=== PATIENT | female | born 1975 | race African-American/Black ===

== ENCOUNTER 2017-04-03 14:50 | Inpatient (IN) | payer OTHER, MEDICARE ==
[~2017-04-03] VITALS: Ht 175.3 cm; Wt 90.0 kg
[~2017-04-03 14:50] MED LIST: BENZ1TAB PO; CLON1TAB PO; DEPA500T3 PO; GABA600T PO; IMIP25TA PO; LEVO100T4 PO; LEVO88TA2 PO; LISI-363 PO; METF500 PO; NIFE30TA2 PO; OMEP20TA39 PO; SERO100T PO; SIMV20 PO; TRAZ100 PO; ZANA4CAP PO; ZOLP10TA3 PO
[2017-04-03 14:58] VITALS: BP 140/93; PULSE 122; RESP 18; TEMP 98.3; O2SAT 99
[2017-04-03 15:28] LABS: AUTOMATED NEUTROPHIL # 9.6 TH/MM3 (1.8-7.7); BASOPHIL # 0.1 TH/MM3 (0-0.2); BASOPHIL % 0.4 % (0.0-2.0); EOSINOPHIL # 0.1 TH/MM3 (0-0.4); EOSINOPHIL % 0.5 % (0.0-4.0); HEMATOCRIT 39.9 % (35.0-46.0); HEMO FLAGS DIFF FINAL; LYMPH % 13.3 % (9.0-44.0); LYMPHOCYTE # 1.6 TH/MM3 (1.0-4.8); MEAN CELL VOLUME 91.3 FL (80.0-100.0); MEAN CORPUSCULAR HEMOGLOBIN 29.5 PG (27.0-34.0); MEAN CORPUSCULAR HGB CONC 32.3 % (32.0-36.0); MONO % 7.3 % (0.0-8.0); NEUT % 78.5 % (16.0-70.0); PLATELET COUNT 189 TH/MM3 (150-450); RED BLOOD COUNT 4.37 MIL/MM3 (4.00-5.30); RED CELL DISTRIBUTION WIDTH 14.8 % (11.6-17.2); WHITE BLOOD COUNT 12.2 TH/MM3 (4.0-11.0)
[2017-04-03 15:39] LABS: POTASSIUM 3.7 MEQ/L (3.5-5.1)
[2017-04-03 15:52] LABS: AMPHETAMINE, URINE NEG (NEG); BARBITURATES, URINE NEG (NEG); COCAINE, URINE NEG (NEG)
--- NOTE | 2017-04-03 16:08 | PD ---
HPI Chief Complaint: Psychiatric Symptoms Time Seen by Provider: 16:05 Travel History International Travel<30 days: No Contact w/Intl Traveler<30days: No Traveled to known affect area: No History of Present Illness HPI 41-year-old female presents to the emergency Department under ex parte order for psychiatric evaluation. According to the court order, the patient's been psychotic refusing her psychiatric medications. The patient is alert and oriented to person, place, time, but then goes off on a tangent talking about taking care of little kids. According to her chart, she has a long history and multiple admissions for schizophrenia and bipolar disorder. However, she denies having these diagnoses. She also denies taking any medications. Patient has no medical complaints at this time. She denies any alcohol, tobacco , illicit drug use. PFSH Past Medical History Blood Disorders: No Bipolar Disorder: Yes Anxiety: Yes Depression: Yes Cancer: No Cardiovascular Problems: No Diabetes: Yes Diminished Hearing: No Endocrine: Yes Gastrointestinal Disorders: No Genitourinary: No Hypertension: Yes Immune Disorder: No Implanted Vascular Access Dvce: No Musculoskeletal: No Neurologic: No Psychiatric: Yes Reproductive: No Respiratory: No PNEUMOCCOCAL Vaccine (Year): 2 ?: Not LMP: DOES NOT GET ANYMORE Menopausal: Yes : 1 Para: 1 Past Surgical History Abdominal Surgery: Yes (CSECTION) AICD: No Arteriovenous Shunt: No Section: Yes (1997) Gynecologic Surgery: Yes Insulin Pump: No Joint Replacement: No Pacemaker: No Other Surgery: Yes (C SECTION ONLY) Social History Alcohol Use: No Tobacco Use: Yes (11/15 PPD) Substance Use: Yes (COCOAINE) Allergies-Medications (Allergen,Severity, Reaction): Coded Allergies: No Known Allergies (Unverified , 01/30/16) PER SARAH AT [facility], PATIENT HAS NKDA PER RECORD. Reported Meds & Prescriptions Reported Meds & Active Scripts Active Reported Levothyroxine 88 mcg (Levothyroxine Sodium) 88 Mcg Tab 88 Mcg PO DAILY Nifedical Xl (Nifedipine) 30 Mg Tab 30 Mg PO DAILY Zanaflex 4 mg capsule (Tizanidine HCl) 4 Mg Cap 1 Cap PO BID Levothyroxine 100 mcg (Levothyroxine Sodium) 100 Mcg Tab 100 Mcg PO DAILY Simvastatin 20 mg (Simvastatin) 20 Mg Tab 1 Tab PO HS Gabapentin 600 Mg Tab 600 Mg PO DAILY Clonazepam 1 Mg Tab 1 Mg PO TID Zolpidem Tartrate 10 Mg Tab 10 Mg PO HS Hm Omeprazole (Omeprazole) 20 Mg Tab 20 Mg PO DAILY Trazodone Hcl (Trazodone HCl) 100 Mg Tab 100 Mg PO HS Cogentin (Benztropine Mesylate) 2 Mg Tab 2 Mg PO HS Depakote ER 500 mg (Divalproex Sodium) 500 Mg Tab 1 Tab PO BID Imipramine HCl 25 Mg Tab 25 Mg PO HS Glucophage 500 mg (Metformin HCl) 500 Mg Tab 500 Mg PO BIDPC Seroquel 100 mg (Quetiapine Fumarate) 100 Mg Tab 100 Mg PO BID Lisinopril 20 mg (Lisinopril) 20 Mg Tab 1 Tab PO DAILY Review of Systems Except as stated in HPI: all other systems reviewed are Neg Physical Exam Narrative GENERAL: Well-nourished, well-developed female patient, ambulatory. Afebrile. Patient is alert and oriented to person, place, time. SKIN: Focused skin assessment warm/dry. HEAD: Normocephalic. EYES: No scleral icterus. No injection or drainage. NECK: Supple, trachea midline. No JVD or lymphadenopathy. CARDIOVASCULAR: Regular rate and rhythm without murmurs, gallops, or rubs. RESPIRATORY: Breath sounds equal bilaterally. No accessory muscle use. Lungs sounds are clear to auscultation. GASTROINTESTINAL: Abdomen soft, non-tender, nondistended. MUSCULOSKELETAL: No cyanosis, or edema. PSYCHIATRIC: No delusional thought processes. No hallucinations. Patient talks about unrelated subjects. Data Data Last Documented VS Vital Signs Date Time Temp Pulse Resp B/P Pulse Ox O2 Delivery O2 Flow Rate FiO2 04/03/17 16:12 105 16 100 Room Air 04/03/17 14:58 98.3 140/93 Orders Complete Blood Count With Diff (04/03/17 15:01) Basic Metabolic Panel (Bmp) (04/03/17 15:01) Drug Screen, Random Urine (04/03/17 15:01) Psych Screen (04/03/17 15:01) Labs Laboratory Tests Test 04/03/17 04/03/17 13:20 15:12 Urine Opiates Screen NEG Urine Barbiturates Screen NEG Urine Amphetamines Screen NEG Urine Benzodiazepines Screen NEG Urine Cocaine Screen NEG Urine Cannabinoids Screen NEG White Blood Count 12.2 TH/MM3 Red Blood Count 4.37 MIL/MM3 Hemoglobin 12.9 GM/DL Hematocrit 39.9 % Mean Corpuscular Volume 91.3 FL Mean Corpuscular Hemoglobin 29.5 PG Mean Corpuscular Hemoglobin 32.3 % Concent Red Cell Distribution Width 14.8 % Platelet Count 189 TH/MM3 Mean Platelet Volume 9.6 FL Neutrophils (%) (Auto) 78.5 % Lymphocytes (%) (Auto) 13.3 % Monocytes (%) (Auto) 7.3 % Eosinophils (%) (Auto) 0.5 % Basophils (%) (Auto) 0.4 % Neutrophils # (Auto) 9.6 TH/MM3 Lymphocytes # (Auto) 1.6 TH/MM3 Monocytes # (Auto) 0.9 TH/MM3 Eosinophils # (Auto) 0.1 TH/MM3 Basophils # (Auto) 0.1 TH/MM3 CBC Comment DIFF FINAL Differential Comment Sodium Level 143 MEQ/L Potassium Level 3.7 MEQ/L Chloride Level 110 MEQ/L Carbon Dioxide Level 24.0 MEQ/L Anion Gap 9 MEQ/L Blood Urea Nitrogen 12 MG/DL Creatinine 0.85 MG/DL Estimat Glomerular Filtration 89 ML/MIN Rate Random Glucose 121 MG/DL Calcium Level 10.1 MG/DL MDM Medical Decision Making Medical Screen Exam Complete: Yes Emergency Medical Condition: Yes Medical Record Reviewed: Yes Differential Diagnosis Schizophrenia versus bipolar disorder versus depression versus anxiety Narrative Course 31-year-old female long history of bipolar disorder and schizophrenia presents to the emergency Department under court order for psychiatric evaluation. The patient denies having these diagnoses. She has no medical complaints at this time. CBC shows slight leukocytosis at 12.2. BMP shows no acute abnormality. Urine drug screen is negative. Patient is medically cleared for psychiatric screening and disposition. Mental health screening discussed with the patient. Psychiatric screen ordered. Diagnosis Primary Impression: Schizophrenia Qualified Code: F20.9 - Schizophrenia, unspecified type Additional Instructions: Patient is medically cleared for psychiatric screening and disposition. Condition: Stable Lynne Alicea BLACK April 03, 2017 16:08
[2017-04-03 16:12] VITALS: PULSE 105; RESP 16; O2SAT 100
[2017-04-03] MEDS ORDERED: LORazepam 2 MG/ML VIAL IM ONE (17:15)
[2017-04-03] MEDS ORDERED: OLANZapine IM 10 MG VIAL IM ONE (17:15)
--- NOTE | 2017-04-03 18:50 | PD ---
History of Present Illness Chief Complaint: Psychiatric Symptoms Time Seen by Provider: 16:45 Travel History International Travel<30 Days: No Contact w/Intl Traveler<30days: No Known affected area: No Legal Status Legal Status: Ex Parte [employer] Act Comment: petitioners Christos Pelaez and Natalie Smith History of Present Illness: History of Present Illness HPI 41-year-old female with history of schizophrenia presents to the emergency Department under ex parte order initiated by her caregiver and a [facility] employee for psychiatric evaluation. The petitioners report that the patient has not been taking her psychiatric medication, has been screaming and yelling, threatening other residents, uncooperative with house rules., did not sleep for the past 24 hours. 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 Her speech is loud, rapid, unable to be interrupted. She is distracted and tangential, religiously preoccupied. She is demanding to leave the hospital and would not move from exits despite multiple verbal attempts to get her to move away from exit door. She did not respond to verbal redirection and required to be escorted back to her room.She began to talk about the devil as well as saying that we are saying she is mentally ill but that she is not so. Required ETO as well as restraints as patient escalated , was threatening to leave the unit and was not responding to staff requests . PFSH Past Medical History Blood Disorders: No Bipolar Disorder: Yes Anxiety: Yes Depression: Yes Cancer: No Cardiovascular Problems: No Diabetes: Yes Diminished Hearing: No Endocrine: Yes Gastrointestinal Disorders: No Genitourinary: No Hypertension: Yes Immune Disorder: No Implanted Vascular Access Dvce: No Musculoskeletal: No Neurologic: No Psychiatric: Yes Reproductive: No Respiratory: No PNEUMOCCOCAL Vaccine (Year): 2 ?: Not LMP: DOES NOT GET ANYMORE Menopausal: Yes : 1 Para: 1 Past Surgical History Abdominal Surgery: Yes (CSECTION) AICD: No Arteriovenous Shunt: No Section: Yes (1997) Gynecologic Surgery: Yes Insulin Pump: No Joint Replacement: No Pacemaker: No Other Surgery: Yes (C SECTION ONLY) Psychiatric History Psychiatric History Hx Psychiatric Treatment: Patient is well known to this facility dating back February 2008, with a diagnosis of Schizoaffective D/O, and medication and treatment noncompliance. History of Inpatient Treatment: Yes (Multiple admissions including 4 past admissions to [facility]) Social History unable to obtain Hx Alcohol Use: No Hx Tobacco Use: Yes (11/15 PPD) Hx Substance Use: Yes (COCOAINE) Substance Use Type: Nicotine/Cigarettes Other Substances Used: DENIES Hx of Substance Use Treatment: No Family Psychiatric History unable to obtain Allergies-Medications (Allergen,Severity, Reaction): Coded Allergies: No Known Allergies (Unverified , 01/30/16) PER SARAH AT [facility], PATIENT HAS NKDA PER RECORD. Reported Meds & Prescriptions Reported Meds & Active Scripts Active Reported Levothyroxine 88 mcg (Levothyroxine Sodium) 88 Mcg Tab 88 Mcg PO DAILY Nifedical Xl (Nifedipine) 30 Mg Tab 30 Mg PO DAILY Zanaflex 4 mg capsule (Tizanidine HCl) 4 Mg Cap 1 Cap PO BID Levothyroxine 100 mcg (Levothyroxine Sodium) 100 Mcg Tab 100 Mcg PO DAILY Simvastatin 20 mg (Simvastatin) 20 Mg Tab 1 Tab PO HS Gabapentin 600 Mg Tab 600 Mg PO DAILY Clonazepam 1 Mg Tab 1 Mg PO TID Zolpidem Tartrate 10 Mg Tab 10 Mg PO HS Hm Omeprazole (Omeprazole) 20 Mg Tab 20 Mg PO DAILY Trazodone Hcl (Trazodone HCl) 100 Mg Tab 100 Mg PO HS Cogentin (Benztropine Mesylate) 2 Mg Tab 2 Mg PO HS Depakote ER 500 mg (Divalproex Sodium) 500 Mg Tab 1 Tab PO BID Imipramine HCl 25 Mg Tab 25 Mg PO HS Glucophage 500 mg (Metformin HCl) 500 Mg Tab 500 Mg PO BIDPC Seroquel 100 mg (Quetiapine Fumarate) 100 Mg Tab 100 Mg PO BID Lisinopril 20 mg (Lisinopril) 20 Mg Tab 1 Tab PO DAILY Review of Systems ROS Limitations: Uncooperative, Psychotic Exam Alert: Yes Hamer: Person, Place Mood: Agitated Affect: Other (angry) Speech: Clear, Fast, Illogical, Tangential Eye Contact: Indirect Memory Intact: Comment (not tested) Delusions: Yes Delusion Type: Paranoid Suicidal: Ideation (neagtive) Homicidal: Ideation (neagtive) Insight/Judgement poor. impaired MDM Medical Decision Making Medical Record Reviewed: Yes Assessment/Plan 41 year old female who is psychotic , loud, threatening to leave the unit, not accepting verbal redirection, screaming loudly. Patient is given ETO . Most likely will require inpatient treatment to stabilize, maintain safety and initiate medication. Orders Complete Blood Count With Diff (04/03/17 15:01) Basic Metabolic Panel (Bmp) (04/03/17 15:01) Drug Screen, Random Urine (04/03/17 15:01) Psych Screen (04/03/17 15:01) Diet 1800 Ada Cons Carb (04/03/17 Dinner) Restraints Violent (04/03/17 17:00) Lorazepam Inj (Ativan Inj) (04/03/17 17:15) Olanzapine Inj (Zyprexa Inj) (04/03/17 17:15) Results Vital Signs Date Time Temp Pulse Resp B/P Pulse Ox O2 Delivery O2 Flow Rate FiO2 04/03/17 16:12 105 16 100 Room Air 04/03/17 14:58 98.3 122 18 140/93 99 Laboratory Tests Test 04/03/17 04/03/17 13:20 15:12 Urine Opiates Screen NEG Urine Barbiturates Screen NEG Urine Amphetamines Screen NEG Urine Benzodiazepines Screen NEG Urine Cocaine Screen NEG Urine Cannabinoids Screen NEG White Blood Count 12.2 Red Blood Count 4.37 Hemoglobin 12.9 Hematocrit 39.9 Mean Corpuscular Volume 91.3 Mean Corpuscular Hemoglobin 29.5 Mean Corpuscular Hemoglobin 32.3 Concent Red Cell Distribution Width 14.8 Platelet Count 189 Mean Platelet Volume 9.6 Neutrophils (%) (Auto) 78.5 Lymphocytes (%) (Auto) 13.3 Monocytes (%) (Auto) 7.3 Eosinophils (%) (Auto) 0.5 Basophils (%) (Auto) 0.4 Neutrophils # (Auto) 9.6 Lymphocytes # (Auto) 1.6 Monocytes # (Auto) 0.9 Eosinophils # (Auto) 0.1 Basophils # (Auto) 0.1 CBC Comment DIFF FINAL Differential Comment Sodium Level 143 Potassium Level 3.7 Chloride Level 110 Carbon Dioxide Level 24.0 Anion Gap 9 Blood Urea Nitrogen 12 Creatinine 0.85 Estimat Glomerular Filtration 89 Rate Random Glucose 121 Calcium Level 10.1 Diagnosis Primary Impression: Schizophrenia Additional Instructions: Patient is medically cleared for psychiatric screening and disposition. Condition: Stable Problem Qualifiers Primary Impression: Schizophrenia Qualified Code: F20.9 - Schizophrenia, unspecified type Erica Cisse [facility] April 03, 2017 18:50
[2017-04-03 22:22] VITALS: BP 186/95; PULSE 84; RESP 18; O2SAT 98
[2017-04-04] MEDS ORDERED: LORazepam 2 MG TAB PO PRN (00:30)
[2017-04-04] MEDS ORDERED: LORazepam 2 MG/ML VIAL IM PRN ×2 (00:30→00:45)
[2017-04-04] MEDS ORDERED: OLANZapine IM 10 MG VIAL IM PRN (00:45)
[2017-04-04] MEDS ORDERED: OLANZapine 10 MG TAB PO PRN ×2 (00:45→07:15)
[2017-04-04 02:11] VITALS: BP 175/96; PULSE 89; RESP 18; O2SAT 97
[2017-04-04 06:28] VITALS: BP 173/99; PULSE 85; RESP 18; O2SAT 97
[2017-04-04] MEDS: LORazepam 2 MG TAB PO PRN (14:23)
[2017-04-04] MEDS ORDERED: LISINOPRIL 10 MG TAB PO ONE (18:00)
[2017-04-04 18:07] VITALS: BP 166/117; PULSE 137
[2017-04-05 02:20] VITALS: BP 170/117; PULSE 111; RESP 18; TEMP 98.4; O2SAT 98
[2017-04-05] MEDS: LORazepam 2 MG TAB PO PRN (02:25)
[2017-04-05] MEDS: cloNIDine HCL 0.1 MG TAB PO PRN (02:25)
[2017-04-05] MEDS ORDERED: OLANZapine 10 MG TAB PO PRN (03:30)
[2017-04-05 06:15] VITALS: BP 148/92; PULSE 98
[2017-04-05 08:10] LABS: ANION GAP 8 MEQ/L (5-15); BLOOD UREA NITROGEN 16 MG/DL (7-18); CHLORIDE 110 MEQ/L (98-107); GLOMERULAR FILTRATION RATE 98 ML/MIN (>89); POTASSIUM 3.9 MEQ/L (3.5-5.1); SODIUM (NA) 144 MEQ/L (136-145)
[2017-04-05 08:12] LABS: HDL CHOLESTEROL 61.1 MG/DL (40.0-60.0); LDL CHOLESTEROL 80 MG/DL (0-99)
[2017-04-05] MEDS ORDERED: LISINOPRIL 10 MG TAB PO SCH (09:00)
[2017-04-05] MEDS ORDERED: BENZTROPINE MESYLATE 2 MG/2 ML VIAL IM PRN (10:45)
[2017-04-05] MEDS ORDERED: GLUCAGON 1 MG/ML VIAL OTHER PRN (10:45)
[2017-04-05] MEDS ORDERED: DEXTROSE 50% IN WATER 50 ML VIAL(D50) IV PRN (10:45)
[2017-04-05] MEDS ORDERED: HALOPERIDOL LACTATE 5 MG/ML AMP IM PRN (10:45)
[2017-04-05] MEDS ORDERED: BENZTROPINE MESYLATE 1 MG TAB PO PRN (10:45)
--- NOTE | 2017-04-05 10:55 | HHI.HP ---
Provisional Diagnosis Admission Date April 04, 2017 at 15:52 [place] I. 1. Schizophrenia, paranoid type, acute exacerbation [place] II. Deferred [place] V. GAF is 30 presently Certification of Person's Competence To Provide Express and Informed Consent I have personally examined Kelli Cuenca , a person being served at [facility] on, April 05, 2017 10:22. Express and informed consent means consent voluntarily given in writing, by a competent person, after sufficient explanation and disclosure of the subject matter involved to enable the person to make a knowing and willful decision without any element of force, fraud, deceit, duress, or other form of constraint or coercion. This person is 18 years of age or older, is not now known to be incompetent to consent to treatment with a guardian advocate, and does not have a health care surrogate or proxy currently making medical treatment decisions. I have found this person to be one of the following: [] Competent to provide express and informed consent, as defined above, for voluntary admission to this facility and is competent to provide express and informed consent for treatment. He/she has the consistent capacity to make well reasoned, willful, and knowing decisions concerning his or her medical or mental health treatment. The person fully and consistently understands the purpose of the admission for examination/placement and is fully capable of personally exercising all rights [place] [x] Incompetent to provide express and informed consent to voluntary admission, and this is incompetent to provide express and informed consent to treatment. The person must be transferred to involuntary status and a petition for a guardian advocate filed with the Circuit Court. [] Refusing to provide express and informed consent to voluntary admission but is competent to provide express and informed consent for treatment. The person must be discharged or transferred to involuntary status. Form shall be completed within 24 hours of a person's arrival at the receiving facility and filed in the clinical record of each person: 1. Admitted on a voluntary basis 2. Permitted to provide express and informed consent to his/her own treatment 3. Allowed to transfer from involuntary to voluntary status 4. Prior to permitting a person to consent to his or her own treatment after having been previously found incompetent to consent to treatment. History of Present Illness Capacity: Lacks Capacity HPI Ms. Cuenca is a 41-year-old female with a history of schizophrenia who presents under an ex parte order initiated by her caregiver, Ms. Pelaez, and a [facility] employee, Ms. Smith. I have reviewed the ex parte order in detail and it alleges that the patient has been refusing medications and threatening other residents at her facility. Efforts were allegedly made to have the patient Koo acted by law enforcement without success. Ex parte order also alleges that the patient was found with a knife in her bedroom dresser drawer on 03/22, and all sharps were subsequently secured. Patient was evaluated by the psychiatric nurse practitioner in the emergency department and was apparently agitated there, requiring ETO medications. Reviewing the electronic medical record, I note the patient was admitted here most recently in February of last year under Dr. Villanueva, and it appears that she was transferred to the [facility] for further stabilization at that time. Patient seen and examined with counselor and nurse. Chart reviewed. Case discussed with nursing staff reports that the patient has been intermittently agitated since arriving to the floor. On my examination today, the patient presents as delusional. She believes that her sister, Niya, is "poisoning me with chemicals and drugs in my system." She says that she knows that this is happening because she has at times felt "fainty and bloated in the head." She denies physical complaints at this time, except that she believes that her blood is "dirty and dark and that's where the pressure is coming from." She wants us to "draw off [her blood] to make me pure again." Sabianist preoccupation is noted. Insight into mental illness is poor, and the patient rejects any mental illness diagnosis. Thought process fairly linear within delusional system. Affect is euthymic if somewhat childlike. No issues with mood noted. She denies any suicidal or homicidal ideation. She denies any audiovisual hallucinations. Remainder of the psychiatric ROS is negative. Past psychiatric history: Patient rejects any psychiatric diagnosis although she does report that she has been diagnosed with schizophrenia and bipolar disorder in the past. She says that she was hospitalized most recently at the [facility] at [place] and was hospitalized there for 9 months. She denies any history of suicide attempts. Reviewing the medication administration record, I note previous trials of Haldol and Haldol Decanoate, Risperdal, Invega Sustenna, Geodon, Zyprexa along with Depakote. A medication list is incorporated into the ex parte order. Presently, the patient is prescribed Seroquel 300 mg twice a day, which she has allegedly been refusing. Other medications include Zocor, Zestril, metformin, Synthroid, Procardia, aspirin and Prilosec as well as Colace. Review of Systems ROS Limitations: Psychotic, Poor Historian Except as stated in HPI: all other systems reviewed are Neg Past Psych History Psychological trauma history No reported trauma history to me Violence risk - others (6 mos) Indeterminate. Patient is psychotic and unpredictable. She was allegedly agitated at her facility and has been agitated at intervals on the inpatient psychiatric unit per nursing staff. Violence risk - self (6 mos) Indeterminate. Patient is psychotic and unpredictable. Substance Abuse History Drugs/Alcohol past 12 months Patient denies any history of abuse of drugs or alcohol but does say that she smokes about 4 cigarettes a day. Past Family Social History Coded Allergies: *MDRO Multi-Drug Resistant Organism (Verified Adverse Reaction, Unknown, MRSA, 04/05/17) MRSA (wounds) - 12/01/07, 02/01/08 Past Medical History Patient denies that she has any medical issues besides believing that her blood is somehow contaminated and that she is being poisoned with chemicals. Discontinued Reported Medications Levothyroxine Sodium (Levothyroxine 88 mcg)88 Mcg Tab88 Mcg PO DAILY 03/07/16 Nifedipine (Nifedical Xl)30 Mg Tab30 Mg PO DAILY 03/07/16 Tizanidine 4 mg capsule (Zanaflex 4 mg capsule)4 Mg Cap1 Cap PO BID 03/07/16 Levothyroxine Sodium (Levothyroxine 100 mcg)100 Mcg [id number] Mcg PO DAILY 03/07/16 Simvastatin 20 mg 20 Mg Tab1 Tab PO HS 03/07/16 Gabapentin 600 Mg [id number] Mg PO DAILY 03/07/16 Clonazepam (Clonazepam)1 Mg Tab1 Mg PO TID 03/07/16 Zolpidem Tartrate 10 Mg Tab10 Mg PO HS 03/07/16 Omeprazole (Hm Omeprazole)20 Mg Tab20 Mg PO DAILY 03/07/16 Trazodone HCl 100 Mg [id number] Mg PO HS 01/29/16 Benztropine Mesylate (Benztropine Mesylate)2 Mg Tab2 Mg PO HS 01/29/16 Divalproex ER 500 mg (Depakote ER 500 mg)500 Mg Tab1 Tab PO BID 01/29/16 Imipramine Hcl (Imipramine HCl)25 Mg Tab25 Mg PO HS 01/29/16 Metformin 500 mg (Glucophage 500 mg)500 Mg Klk190 Mg PO BIDPC 01/29/16 Quetiapine Fumarate 100 mg (Seroquel 100 mg)100 Mg [id number] Mg PO BID 01/29/16 Lisinopril 20 mg 20 Mg Tab1 Tab PO DAILY 01/29/16 Current Medications Medications (Trade) Dose Ordered Sig/Kanwal Route Start Time Stop Time Status Last Admin (Ativan) 2 mg Q8H PRN PO 04/04/17 00:45 04/05/17 02:25 (Ativan Inj) 2 mg Q8H PRN IM 04/04/17 00:45 (ZyPREXA INJ) 10 mg Q8H PRN IM 04/04/17 00:45 (Prinivil) 10 mg DAILY PO 04/05/17 09:00 04/05/17 09:09 (Catapres) 0.1 mg Q6H PRN PO 04/04/17 18:00 04/05/17 02:25 (ZyPREXA) 10 mg Q8H PRN PO 04/05/17 03:30 Family History Patient believes that her paternal aunt had bipolar disorder. No other family psychiatric history reported. Social History Patient reports that she has been residing in a senior care. She reports a boyfriend by the name of Luis Eduardo. She has a 19-year-old son. She is high school educated and also attended 2 semesters of college. 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 She denies any history. She does report a history of domestic violence charges in 2015 but no active legal issues. No reported access to guns or firearms. Patient's Strengths (min. 2) In a monitored setting. Verbally fluent. Physical Exam Physical examination was completed by the ED provider. On my examination today , the patient appears to be in no acute physical distress. No motor abnormalities noted. Laboratories and vital signs reviewed: Vital Signs Vital Signs Date Time Temp Pulse Resp B/P Pulse Ox O2 Delivery O2 Flow Rate FiO2 04/05/17 06:15 98 148/92 04/05/17 02:20 98.4 18 98 04/04/17 06:28 Room Air Lab Results Item Value Date Time White Blood Count 12.2 TH/MM3 H 04/03/17 1512 Hemoglobin 12.9 GM/DL 04/03/17 1512 Platelet Count 189 TH/MM3 04/03/17 1512 Sodium Level 144 MEQ/L 04/05/17 0725 Potassium Level 3.9 MEQ/L 04/05/17 0725 Chloride Level 110 MEQ/L H 04/05/17 0725 Carbon Dioxide Level 26.0 MEQ/L 04/05/17 0725 Blood Urea Nitrogen 16 MG/DL 04/05/17 0725 Creatinine 0.78 MG/DL 04/05/17 0725 Estimat Glomerular Filtration Rate 98 ML/MIN 04/05/17 0725 Random Glucose 96 MG/DL 04/05/17 0725 Urine toxicology negative. Mental Status Examination Patient is in hospital gown. She is fairly well groomed. She is awake and alert and oriented to person and hospital at least. Memory seems fairly intact on clinical exam. No motor abnormalities noted. Speech is within normal limits for rate, tone and volume. Language and fund of knowledge seem low average to somewhat reduced. Mood is fair and affect is euthymic and somewhat childlike. Thought process linear within delusional system. No loosening of associations. Paranoid delusions of being poisoned and of her blood being contaminated as well as a mu-ism preoccupation are noted. Denies audiovisual hallucinations. Denies suicidal or homicidal ideation. Insight and judgment are poor. Assessment & Plan Problem List: (1) Schizophrenia ICD Code: F20.9 Assessment & Plan This is a 41-year-old female with psychiatric history as detailed above who presents under an ex parte order. On my examination today, patient presents as delusional on themes of being poisoned and her blood being somehow contaminated. Ex parte order contains allegations of medication nonadherence and significant agitation. Patient would likely benefit from a long-acting injectable antipsychotic medication. Patient requires psychiatric hospitalization at this time for safety, observation and stabilization. Admit inpatient. Involuntary status. I have completed first opinion. Consult for second opinion. Request healthcare surrogate and guardian advocate. ED provider has already consulted the hospitalist for hypertension; continue this. Given reported issues with adherence with psychotropic medications, replace Seroquel with Risperdal with plans for Consta or Sustenna as it appears that she has tolerated this agent well in the past and it has been at least partially efficacious. If Risperdal does not result in good symptomatic control , could consider Abilify/Abilify Maintena or Haldol/Prolixin Dec. Continue patient's antihypertensives and statin. Continue metformin, add Accu-cheks and SSI. Diabetic diet. Continue Synthroid and check TSH/free T4. Check CBC, beta hCG and LFTs. Haldol as needed for severe agitation, Ativan as needed for anxiety, Cogentin as needed for EPS. Vitals every shift. Counselor to see. Disposition planning. Estimated length of stay: 2-3 weeks, longer if new placement or state psychiatric hospitalization is once again required. Discharge Planning Pending psychiatric stabilization Request HC Surrog/Guard Advoc?: Yes Problem Qualifiers (1) Schizophrenia: Qualified Code: F20.0 - Paranoid schizophrenia Ivan Montgomery MD April 05, 2017 10:55
[2017-04-05] MEDS: INSULIN ASPART SUPPLEMENTAL SCALE SQ SCH ×3 (11:00→20:24)
[2017-04-05 11:13] LABS: AUTOMATED NEUTROPHIL # 6.2 TH/MM3 (1.8-7.7); BASOPHIL # 0.1 TH/MM3 (0-0.2); BASOPHIL % 0.9 % (0.0-2.0); EOSINOPHIL # 0.2 TH/MM3 (0-0.4); EOSINOPHIL % 2.3 % (0.0-4.0); HEMATOCRIT 38.5 % (35.0-46.0); HEMO FLAGS DIFF FINAL; LYMPH % 20.3 % (9.0-44.0); LYMPHOCYTE # 1.8 TH/MM3 (1.0-4.8); MEAN CELL VOLUME 90.4 FL (80.0-100.0); MEAN CORPUSCULAR HEMOGLOBIN 30.1 PG (27.0-34.0); MEAN CORPUSCULAR HGB CONC 33.3 % (32.0-36.0); NEUT % 69.5 % (16.0-70.0); PLATELET COUNT 189 TH/MM3 (150-450); RED BLOOD COUNT 4.26 MIL/MM3 (4.00-5.30); RED CELL DISTRIBUTION WIDTH 14.6 % (11.6-17.2); WHITE BLOOD COUNT 8.9 TH/MM3 (4.0-11.0)
[2017-04-05 11:21] LABS: ALT (GPT) 24 U/L (10-53); AST (GOT) 19 U/L (15-37)
[2017-04-05 11:25] LABS: ALKALINE PHOSPHATASE 71 U/L (45-117); INDIRECT BILIRUBIN 0.2 MG/DL (0.0-0.8); TOTAL BILIRUBIN ADULT 0.3 MG/DL (0.2-1.0)
[2017-04-05 11:29] LABS: FREE T4 1.16 NG/DL (0.76-1.46)
[2017-04-05 11:45] LABS: BHCG SCREEN QUALITATIVE LESS THAN 1 MIU/ML (0-5)
--- NOTE | 2017-04-05 13:29 | PD.CONS ---
Provisional Diagnosis Admission Date April 04, 2017 at 15:52 [place] I. 1. Schizophrenia, paranoid type, acute exacerbation [place] II. Deferred [place] V. GAF is 30 presently History of Present Illness Service Psychiatry Consult Requested By Dr. Montgomery Reason for Consult Second opinion Koo act Primary Care Physician Unknown HPI Ms. Cuenca is a 41-year-old female with a history of schizophrenia who presents under an ex parte order initiated by her caregiver, Ms. Pelaez, and a [facility] employee, Ms. Smith. I have reviewed the ex parte order in detail and it alleges that the patient has been refusing medications and threatening other residents at her facility. Efforts were allegedly made to have the patient [place] acted by law enforcement without success. Ex parte order also alleges that the patient was found with a knife in her bedroom dresser drawer on 03/22, and all sharps were subsequently secured. Patient was evaluated by the psychiatric nurse practitioner in the emergency department and was apparently agitated there, requiring ETO medications. Reviewing the electronic medical record, I note the patient was admitted here most recently in February of last year under Dr. Villanueva, and it appears that she was transferred to the [facility] for further stabilization at that time. Patient seen and examined with counselor and nurse. Chart reviewed. Case discussed with nursing staff reports that the patient has been intermittently agitated since arriving to the floor. On my examination today, the patient presents as delusional. She believes that her sister, Niya, is "poisoning me with chemicals and drugs in my system." She says that she knows that this is happening because she has at times felt "fainty and bloated in the head." She denies physical complaints at this time, except that she believes that her blood is "dirty in dark and that's where the pressure is coming from." She wants us to "draw off [her blood] to make me pure again." Latter-Day preoccupation is noted. Insight into mental illness is poor, and the patient rejects any mental illness diagnosis. Thought process fairly linear within delusional system. Affect is euthymic if somewhat childlike. No issues with mood noted. She denies any suicidal or homicidal ideation. She denies any audiovisual hallucinations. Remainder of the psychiatric ROS is negative. Past psychiatric history: Patient rejects any psychiatric diagnosis although she does report that she has been diagnosed with schizophrenia and bipolar disorder in the past. She says that she was hospitalized most recently at the [facility] at [place] and was hospitalized there for 9 months. She denies any history of suicide attempts. Reviewing the medication administration record, I note previous trials of Haldol and Haldol Decanoate, Risperdal, Invega Sustenna, Geodon, Zyprexa along with Depakote. A medication list is incorporated into the ex parte order. Presently, the patient is prescribed Seroquel 300 mg twice a day, which she has allegedly been refusing. Other medications include Zocor, Zestril, metformin, Synthroid, Procardia, aspirin and Prilosec as well as Colace. 04/05/[address] montgomery reviewed and agreed with patient seen by me in her room with nurse Ana. Patient loud grandiose intense with delusional ideation related to her family. She denies any mental illness or need for medications reflecting responsibility to various other people. Dr. Montgomery his sign first opinion petition supporting Koo act. I agree. Patient meets criteria for involuntary psychiatric hospitalization. Thus I will sign second opinion petition supporting Koo act Past Family Social History Coded Allergies: *MDRO Multi-Drug Resistant Organism (Verified Adverse Reaction, Unknown, MRSA, 04/05/17) MRSA (wounds) - 12/01/07, 02/01/08 Discontinued Reported Medications Levothyroxine Sodium (Levothyroxine 88 mcg)88 Mcg Tab88 Mcg PO DAILY 03/07/16 Nifedipine (Nifedical Xl)30 Mg Tab30 Mg PO DAILY 03/07/16 Tizanidine 4 mg capsule (Zanaflex 4 mg capsule)4 Mg Cap1 Cap PO BID 03/07/16 Levothyroxine Sodium (Levothyroxine 100 mcg)100 Mcg [id number] Mcg PO DAILY 03/07/16 Simvastatin 20 mg 20 Mg Tab1 Tab PO HS 03/07/16 Gabapentin 600 Mg [id number] Mg PO DAILY 03/07/16 Clonazepam (Clonazepam)1 Mg Tab1 Mg PO TID 03/07/16 Zolpidem Tartrate 10 Mg Tab10 Mg PO HS 03/07/16 Omeprazole (Hm Omeprazole)20 Mg Tab20 Mg PO DAILY 03/07/16 Trazodone HCl 100 Mg [id number] Mg PO HS 01/29/16 Benztropine Mesylate (Benztropine Mesylate)2 Mg Tab2 Mg PO HS 01/29/16 Divalproex ER 500 mg (Depakote ER 500 mg)500 Mg Tab1 Tab PO BID 01/29/16 Imipramine Hcl (Imipramine HCl)25 Mg Tab25 Mg PO HS 01/29/16 Metformin 500 mg (Glucophage 500 mg)500 Mg [id number] Mg PO BIDPC 01/29/16 Quetiapine Fumarate 100 mg (Seroquel 100 mg)100 Mg [id number] Mg PO BID 01/29/16 Lisinopril 20 mg 20 Mg Tab1 Tab PO DAILY 01/29/16 Current Medications Medications (Trade) Dose Ordered Sig/Kanwal Route Start Time Stop Time Status Last Admin (Ativan) 2 mg Q8H PRN PO 04/04/17 00:45 04/05/17 02:25 (Ativan Inj) 2 mg Q8H PRN IM 04/04/17 00:45 (Catapres) 0.1 mg Q6H PRN PO 04/04/17 18:00 04/05/17 02:25 (Prinivil) 40 mg DAILY PO 04/06/17 09:00 (Colace) 100 mg DAILY PO 04/06/17 09:00 (Glucophage) 500 mg BIDPC PO 04/05/17 18:00 (Protonix) 20 mg DAILY PO 04/06/17 09:00 (Synthroid) 100 mcg DAILY@0600 PO 04/06/17 06:00 (Procardia Xl) 30 mg DAILY PO 04/06/17 09:00 (Ecotrin Ec) 81 mg DAILY PO 04/06/17 09:00 (Haldol Inj) 5 mg Q6H PRN IM 04/05/17 10:45 (Cogentin) 1 mg Q12HR PRN PO 04/05/17 10:45 (Cogentin Inj) 1 mg Q12HR PRN IM 04/05/17 10:45 (D50w (Vial) Inj) 50 ml UNSCH PRN IV 04/05/17 10:45 (Glucagon Inj) 1 mg UNSCH PRN OTHER 04/05/17 10:45 Patient's Strengths (min. 2) In a monitored setting. Verbally fluent. Physical Exam Vital Signs Vital Signs Date Time Temp Pulse Resp B/P Pulse Ox O2 Delivery O2 Flow Rate FiO2 04/05/17 06:15 98 148/92 04/05/17 02:20 98.4 18 98 04/04/17 06:28 Room Air Mental Status Examination Alert loud intrusive Afro-Palestinian female Appearance Fairly clean and neat Speech: Pressured, Rapid Orientation: x3 Memory: Unremarkable Thought Process: Linear Thought Content: Paranoid Language Poor to fair Fund of Knowledge Poor Hallucination Type: None (denies the times appears to be responding to internal stimuli) Attention and Concentration: Other Suicidal Ideation: No (denies) Previous Suicide Attempts: No (denies) Homicidal Ideation: No (denies) Previous Homicide Attempts: No (denies) Insight: Poor Judgment: Poor Affect: Other (increased range and intensity) Mood: Irritable, Manic Motor Activity: Normal gait Assessment & Plan Problem List: (1) Schizophrenia ICD Code: F20.9 Assessment & Plan Estimated LOS: days Request HC Surrog/Guard Advoc?: Yes Problem Qualifiers (1) Schizophrenia: Qualified Code: F20.0 - Paranoid schizophrenia Kelvin Aguilar MD April 05, 2017 13:29
--- NOTE | 2017-04-05 15:32 | PD.CONS ---
HPI Service [facility] Hospitalists Consult Requested By Psychiatric services Reason for Consult Medical management Primary Care Physician Unknown Diagnoses: History of Present Illness Written by Natalia Vasquez PA-C acting as scribe for Dr. Pedersen on 04/05/17 at 15:25. This is a 41-year-old female with a past medical history of hypertension, diabetes type 2, hypothyroidism, dyslipidemia, bipolar disorder, schizophrenia and depression who is admitted to the psychiatric unit under an ex parte order due to patient refusing medications and threatening other residents at her facility. Patient asked to be seen in consultation by the hospitalist services for medical management. Per review of psychiatric note, She believes that her sister, Niya, is "poisoning me with chemicals and drugs in my system." She says that she knows that this is happening because she has at times felt "fainty and bloated in the head." She denies physical complaints at this time, except that she believes that her blood is "dirty and dark and that's where the pressure is coming from." She wants us to "draw off [ her blood] to make me pure again." Taoist preoccupation is noted. Insight into mental illness is poor, and the patient rejects any mental illness diagnosis. Thought process fairly linear within delusional system. Affect is euthymic if somewhat childlike. No issues with mood noted. She denies any suicidal or homicidal ideation. She denies any audiovisual hallucinations. Patient seen and examined today. Patient has no complaints. She denies any fever, chills, nausea, vomiting, headache, dizziness, shortness of breath, cough , chest pain, abdominal pain or diarrhea. Review of Systems Except as stated in HPI: all other systems reviewed are Neg Past Family Social History Allergies: Coded Allergies: *MDRO Multi-Drug Resistant Organism (Verified Adverse Reaction, Unknown, MRSA, 04/05/17) MRSA (wounds) - 12/01/07, 02/01/08 Past Medical History Hypertension Dyslipidemia Hypothyroidism GERD Diabetes, type 2 Depression Schizophrenia Bipolar disorder Past Surgical History Reported Medications Levothyroxine Sodium (Levothyroxine 88 mcg)88 Mcg Tab88 Mcg PO DAILY 03/07/16 Nifedipine (Nifedical Xl)30 Mg Tab30 Mg PO DAILY 03/07/16 Tizanidine 4 mg capsule (Zanaflex 4 mg capsule)4 Mg Cap1 Cap PO BID 03/07/16 Levothyroxine Sodium (Levothyroxine 100 mcg)100 Mcg [id number] Mcg PO DAILY 03/07/16 Simvastatin 20 mg 20 Mg Tab1 Tab PO HS 03/07/16 Gabapentin 600 Mg [id number] Mg PO DAILY 03/07/16 Clonazepam (Clonazepam)1 Mg Tab1 Mg PO TID 03/07/16 Zolpidem Tartrate 10 Mg Tab10 Mg PO HS 03/07/16 Omeprazole (Hm Omeprazole)20 Mg Tab20 Mg PO DAILY 03/07/16 Trazodone HCl 100 Mg [id number] Mg PO HS 01/29/16 Benztropine Mesylate (Benztropine Mesylate)2 Mg Tab2 Mg PO HS 01/29/16 Divalproex ER 500 mg (Depakote ER 500 mg)500 Mg Tab1 Tab PO BID 01/29/16 Imipramine Hcl (Imipramine HCl)25 Mg Tab25 Mg PO HS 01/29/16 Metformin 500 mg (Glucophage 500 mg)500 Mg [id number] Mg PO BIDPC 01/29/16 Quetiapine Fumarate 100 mg (Seroquel 100 mg)100 Mg [id number] Mg PO BID 01/29/16 Lisinopril 20 mg 20 Mg Tab1 Tab PO DAILY 01/29/16 Active Ordered Medications Current Medications Medications (Trade) Dose Ordered Sig/Kanwal Route Start Time Stop Time Status Last Admin (Ativan) 2 mg Q8H PRN PO 04/04/17 00:45 04/05/17 02:25 (Ativan Inj) 2 mg Q8H PRN IM 04/04/17 00:45 (Catapres) 0.1 mg Q6H PRN PO 04/04/17 18:00 04/05/17 02:25 (Prinivil) 40 mg DAILY PO 04/06/17 09:00 (Colace) 100 mg DAILY PO 04/06/17 09:00 (Glucophage) 500 mg BIDPC PO 04/05/17 18:00 (Protonix) 20 mg DAILY PO 04/06/17 09:00 (Synthroid) 100 mcg DAILY@0600 PO 04/06/17 06:00 (Procardia Xl) 30 mg DAILY PO 04/06/17 09:00 (Ecotrin Ec) 81 mg DAILY PO 04/06/17 09:00 (Haldol Inj) 5 mg Q6H PRN IM 04/05/17 10:45 (Cogentin) 1 mg Q12HR PRN PO 04/05/17 10:45 (Cogentin Inj) 1 mg Q12HR PRN IM 04/05/17 10:45 (D50w (Vial) Inj) 50 ml UNSCH PRN IV 04/05/17 10:45 (Glucagon Inj) 1 mg UNSCH PRN OTHER 04/05/17 10:45 (risperDAL) 1 mg Q12HR PO 04/05/17 21:00 Family History Mother, diabetes and hypertension Social History Patient admits to tobacco use of 3 1/2-4 cigarettes daily./ Denies any alcohol consumption or illicit drug use. She has one son who is 19. She is currently single. Physical Exam Vital Signs Vital Signs Date Time Temp Pulse Resp B/P Pulse Ox O2 Delivery O2 Flow Rate FiO2 04/05/17 06:15 98 148/92 04/05/17 02:20 98.4 111 18 170/117 98 Physical Exam GENERAL: This is a well-nourished, well-developed patient, in no apparent distress. Awake and alert. SKIN: No rashes, ecchymoses or lesions. Cool and dry. HEAD: Atraumatic. Normocephalic. No temporal or scalp tenderness. EYES: Pupils equal round and reactive. Extraocular motions intact. No scleral icterus. No injection or drainage. ENT: Nose without bleeding, purulent drainage or septal hematoma. Throat without erythema, tonsillar hypertrophy or exudate. Uvula midline. Airway patent. NECK: Trachea midline. No lymphadenopathy. Supple, nontender, no meningeal signs. CARDIOVASCULAR: Regular rate and rhythm without murmurs, gallops, or rubs. RESPIRATORY: Clear to auscultation. Breath sounds equal bilaterally. No wheezes , rales, or rhonchi. GASTROINTESTINAL: Abdomen soft, non-tender, nondistended. No hepato-splenomegaly , or palpable masses. No guarding. MUSCULOSKELETAL: Extremities without clubbing, cyanosis, or edema. No joint tenderness, effusion, or edema noted. No calf tenderness. NEUROLOGICAL: Awake and alert. Pressured speech. Able to move all extremities. No focal neurologic findings appreciated on exam. Laboratory Laboratory Tests Test 04/05/17 07:25 White Blood Count 8.9 Red Blood Count 4.26 Hemoglobin 12.8 Hematocrit 38.5 Mean Corpuscular Volume 90.4 Mean Corpuscular Hemoglobin 30.1 Mean Corpuscular Hemoglobin 33.3 Concent Red Cell Distribution Width 14.6 Platelet Count 189 Mean Platelet Volume 10.5 Neutrophils (%) (Auto) 69.5 Lymphocytes (%) (Auto) 20.3 Monocytes (%) (Auto) 7.0 Eosinophils (%) (Auto) 2.3 Basophils (%) (Auto) 0.9 Neutrophils # (Auto) 6.2 Lymphocytes # (Auto) 1.8 Monocytes # (Auto) 0.6 Eosinophils # (Auto) 0.2 Basophils # (Auto) 0.1 CBC Comment DIFF FINAL Differential Comment Sodium Level 144 Potassium Level 3.9 Chloride Level 110 Carbon Dioxide Level 26.0 Anion Gap 8 Blood Urea Nitrogen 16 Creatinine 0.78 Estimat Glomerular Filtration 98 Rate Random Glucose 96 Calcium Level 9.7 Total Bilirubin 0.3 Direct Bilirubin 0.1 Indirect Bilirubin 0.2 Aspartate Amino Transf 19 (AST/SGOT) Alanine Aminotransferase 24 (ALT/SGPT) Alkaline Phosphatase 71 Total Protein 7.1 Albumin 3.5 Triglycerides Level 43 Cholesterol Level 150 LDL Cholesterol 80 HDL Cholesterol 61.1 Cholesterol/HDL Ratio 2.45 Free Thyroxine 1.16 Thyroid Stimulating Hormone 2.460 3rd Gen Beta HCG, Qualitative LESS THAN 1 Result Diagram: 04/05/17 0725 04/05/17 0725 Assessment and Plan Assessment and Plan 41-year-old female with a past medical history of hypertension , diabetes type 2, hypothyroidism, dyslipidemia, bipolar disorder, schizophrenia and depression who is admitted to the psychiatric unit and asked to be seen in consultation by the hospitalist services for medical management. Schizophrenia/bipolar disorder/depression Management per psychiatric team Hypertension BP currently continue home antihypertensives Monitor BP and adjust treatment as indicated Diabetes type 2 Accu-Cheks Insulin sliding scale Blood sugar 119 continue metformin 500 mg twice a day Hypothyroidism continue home levothyroxine dose TSH 2.460 free T4 1.16 Dyslipidemia continue home statin Fasting lipid results reveal good control Leukocytosis Resolved Likely stress related GERD PPI DVT prophylaxis Encourage ambulation Thank you very kindly for this consultation. Patient appears to be stable from a hospital standpoint. Will sign off and please reconsult if needed. This note was transcribed by marcie Vasquez. I, Dr. Hugh Yoder personally performed the history, physical exam, and medical decision making; and confirmed the accuracy of the information in the transcribed note. Authenticated by Dr. Hugh Yoder on 04/05/17 at 15:45.. Natalia Vasquez April 05, 2017 15:32 Hugh Kelly MD Apr 13, 2017 13:26
[2017-04-05 16:22] LABS: HEMOGLOBIN A1a 1.7 %; HEMOGLOBIN A1b 1.6 %; HEMOGLOBIN Ao 84.9 %; HEMOGLOBIN LA1C 1.9 %; HEMOGLOBIN P3 3.8 %
[2017-04-05] MEDS: metFORMIN HCL 500 MG TAB PO SCH (17:22)
[2017-04-05 17:24] VITALS: BP 154/90; PULSE 90; RESP 18; TEMP 98.1; O2SAT 100
[2017-04-05] MEDS: risperiDONE 1 MG TAB PO SCH (21:00)
[2017-04-06 05:26] VITALS: BP 150/90; PULSE 93; RESP 18; TEMP 97.8; O2SAT 97
[2017-04-06] MEDS: LEVOTHYROXINE SODIUM 100 MCG TAB PO SCH (06:00)
[2017-04-06] MEDS: INSULIN ASPART SUPPLEMENTAL SCALE SQ SCH ×4 (07:00→21:00)
[2017-04-06] MEDS: metFORMIN HCL 500 MG TAB PO SCH ×2 (09:00→17:19)
[2017-04-06] MEDS: LISINOPRIL 20 MG TAB PO SCH (09:00)
[2017-04-06] MEDS: PANTOPRAZOLE SOD 20 MG DELAYED RELEASE TAB PO SCH (09:00)
[2017-04-06] MEDS: risperiDONE 1 MG TAB PO SCH ×2 (09:00→22:26)
[2017-04-06] MEDS: ASPIRIN EC 81 MG TABEC PO SCH (09:00)
[2017-04-06] MEDS: DOCUSATE SODIUM 100 MG CAP PO SCH (09:00)
[2017-04-06] MEDS: NIFEdipine 30 MG SUSTAINED RELEASE TAB PO SCH (09:00)
--- NOTE | 2017-04-06 13:18 | HHI.PYPN ---
Subjective Remarks Patient seen and examined with counselor and nurse. Chart reviewed. I note the patient has been refusing all of her scheduled medications. Case discussed with nursing staff. On my examination today, the patient reports that she does not believe that she has any medical or psychiatric issues. She says that her blood pressure has an elevated" due to stress." She remains fairly paranoid and believes that her blood remains contaminated because of "all the people living at the facility" from which she came. She says that her goal is independent living. She says that she knows that she doesn't have a mental illness and in particular a psychotic illness because "when you're psychotic you hurt herself and others." Resistive to psychoeducation regarding psychotic illnesses. No other physical complaints. Review of Systems ROS Limitations: Psychotic, Poor Historian Except as stated in HPI: all other systems reviewed are Neg Objective Alert: Yes [place]: Person, Place Mood: Oppositional Affect: Blunted Memory Intact: Comment (not formally assessed) Hallucinations: Other (no AVH) Delusions: Yes Delusion Type: Paranoid (ongoing paranoia with themes of contamination) Suicidal: Ideation (no SI) Homicidal: Ideation (no HI) Insight/Judgment Poor Remarks No motor abnormalities noted. Grooming and hygiene fair. Labs Labs reviewed. Vitals/IOs Vital Signs Date Time Temp Pulse Resp B/P Pulse Ox O2 Delivery O2 Flow Rate FiO2 04/06/17 05:26 97.8 93 18 150/90 97 04/04/17 06:28 Room Air Assessment & Plan Problem List: (1) Schizophrenia ICD Code: F20.9 Assessment & Plan Patient with ongoing decompensated psychosis, presently refusing PO antipsychotics. Add Haldol IM backup to patient's Risperdal PO. Encourage compliance with medical medications. Hospitalist input noted and appreciated. Continue to monitor on the inpatient psychiatric unit. Continue other medications and care as ordered. Justification for Cont. Inpt. Impairment in reality construction. Medication changes in process. Medication refusal necessitating change in treatment. High risk for decompensation in a less restrictive environment. Discharge Planning Possibly back to referring facility. I have asked that the counselor liaison with environmental marketing representative from patient's facility to discuss return there once stabilized. Request HC Surrog/Guard Advoc?: Yes Problem Qualifiers (1) Schizophrenia: Qualified Code: F20.0 - Paranoid schizophrenia Ivan Montgomery MD April 06, 2017 13:18
[2017-04-06] MEDS ORDERED: HALOPERIDOL LACTATE 5 MG/ML AMP IM PRN (13:30)
[2017-04-06 15:15] VITALS: BP 159/116; PULSE 84; RESP 18; TEMP 97.8; O2SAT 99
[2017-04-06 17:11] VITALS: BP 159/116; PULSE 84; RESP 18; TEMP 97.8; O2SAT 99
[2017-04-07 06:04] VITALS: BP 176/98; PULSE 80; RESP 17; TEMP 97.4; O2SAT 100
[2017-04-07] MEDS: INSULIN ASPART SUPPLEMENTAL SCALE SQ SCH ×4 (06:18→21:00)
[2017-04-07] MEDS: LEVOTHYROXINE SODIUM 100 MCG TAB PO SCH (06:18)
[2017-04-07] MEDS: metFORMIN HCL 500 MG TAB PO SCH ×2 (08:54→18:00)
[2017-04-07] MEDS: DOCUSATE SODIUM 100 MG CAP PO SCH (08:54)
[2017-04-07] MEDS: LISINOPRIL 20 MG TAB PO SCH (08:54)
[2017-04-07] MEDS: ASPIRIN EC 81 MG TABEC PO SCH (08:54)
[2017-04-07] MEDS: NIFEdipine 30 MG SUSTAINED RELEASE TAB PO SCH (08:55)
[2017-04-07] MEDS: PANTOPRAZOLE SOD 20 MG DELAYED RELEASE TAB PO SCH (08:55)
[2017-04-07] MEDS: risperiDONE 1 MG TAB PO SCH ×2 (08:55→21:00)
--- NOTE | 2017-04-07 12:08 | HHI.PYPN ---
Subjective Remarks Patient seen and examined with counselor and nurse. Chart reviewed. I note that the patient is refusing medications including psychotropics, antihypertensives and metformin. Blood sugars remain in fairly decent control, but blood pressures are elevated. Case discussed with nursing staff who reports that the patient remains religiously preoccupied and resistive of care. On my examination today, the patient reports that she is "feeling sleepy, looking for something to energize me." She believes that Gatorade would help with this. She continues to believe that her blood is somehow contaminated and says that she needs to consume a lot of fruit and vegetables to counteract this. She also is reportedly trying to lose weight and would like to weigh 77 pounds, although she does note that she has never come close to this weight before. I do not that she is eating 100% of meals, and there have been no reported restricting or purging behaviors. No side effects from medications. No physical complaints. Review of Systems ROS Limitations: Psychotic, Poor Historian Except as stated in HPI: all other systems reviewed are Neg Objective Alert: Yes [place]: Person, Place Mood: Happy Affect: Euthymic Memory Intact: Comment (not formally assessed) Hallucinations: Other (no AVH) Delusions: Yes Delusion Type: Paranoid (paranoia with themes of contamination) Suicidal: Ideation (no SI) Homicidal: Ideation (no HI) Insight/Judgment Poor Remarks No motoric abnormalities noted. Speech within normal limits for rate, tone and volume. Grooming and hygiene fair. Labs Labs reviewed. Vitals/IOs Vital Signs Date Time Temp Pulse Resp B/P Pulse Ox O2 Delivery O2 Flow Rate FiO2 04/07/17 06:04 97.4 80 17 176/98 100 04/04/17 06:28 Room Air Assessment & Plan Problem List: (1) Schizophrenia ICD Code: F20.9 Assessment & Plan Titrate Risperdal over weekend with corresponding titration of Haldol IM backup to try to bring psychotic symptoms under better control. Plan remains for LOZOYA antipsychotic. I will discontinue patient's scheduled antihypertensives as she is refusing them and replace these with Catapres 0.1mg patch. Continue to monitor on high acuity unit. Continue other medications and care as ordered. Justification for Cont. Inpt. Impairment in self-care (refusing antihypertensives and metformin). Impairment in reality construction. Medication changes in process. High risk for decompensation in a less restrictive setting. Discharge Planning Pending psychiatric stabilization. Request HC Surrog/Guard Advoc?: Yes Problem Qualifiers (1) Schizophrenia: Qualified Code: F20.0 - Paranoid schizophrenia Ivan Montgomery MD April 07, 2017 12:08
[2017-04-07] MEDS: cloNIDine HCL 0.1 MG/24 HR PATCH T-DERMAL SCH ×2 (15:00→20:28)
[2017-04-07] MEDS ORDERED: REMOVE OLD PATCH T-DERMAL SCH (15:00)
[2017-04-07 15:30] VITALS: BP 174/112; PULSE 102; RESP 18; TEMP 98; O2SAT 100
[2017-04-07] MEDS: cloNIDine HCL 0.1 MG TAB PO PRN (15:30)
[2017-04-07] MEDS ORDERED: HALOPERIDOL LACTATE 5 MG/ML AMP IM PRN (21:00)
[2017-04-08] MEDS: LEVOTHYROXINE SODIUM 100 MCG TAB PO SCH (06:00)
[2017-04-08] MEDS: INSULIN ASPART SUPPLEMENTAL SCALE SQ SCH ×4 (06:06→21:00)
[2017-04-08 06:07] VITALS: BP 152/96; PULSE 90
[2017-04-08] MEDS: PANTOPRAZOLE SOD 20 MG DELAYED RELEASE TAB PO SCH (08:35)
[2017-04-08] MEDS: metFORMIN HCL 500 MG TAB PO SCH ×2 (08:35→16:49)
[2017-04-08] MEDS: risperiDONE 1 MG TAB PO SCH ×2 (08:35→21:56)
[2017-04-08] MEDS: ASPIRIN EC 81 MG TABEC PO SCH (08:36)
[2017-04-08] MEDS: DOCUSATE SODIUM 100 MG CAP PO SCH (08:36)
--- NOTE | 2017-04-08 13:05 | HHI.PYPN ---
Subjective Remarks Pt seen and discussed with staff. She has been compliant with medications today and staff report decreased delusional output. Mood has been calm and pleasant today. Pt has been out of room and interacting in milieu today. No SI/HI Objective Alert: Yes [place]: Person, Place Mood: Happy Affect: Euthymic Memory Intact: Comment (not formally assessed) Hallucinations: Other (no AVH) Delusions: Yes Delusion Type: Paranoid (paranoia with themes of contamination) Suicidal: Ideation (no SI) Homicidal: Ideation (no HI) Insight/Judgment poor Vitals/IOs Vital Signs Date Time Temp Pulse Resp B/P Pulse Ox O2 Delivery O2 Flow Rate FiO2 04/08/17 06:07 90 152/96 04/07/17 15:30 98.0 18 100 Assessment & Plan Problem List: (1) Schizophrenia ICD Code: F20.9 Assessment & Plan Pt improving. Continue to encourage compliance with treatment. Estimated LOS: days Justification for Cont. Inpt. impairments in reality construction which are impairing self care Request HC Surrog/Guard Advoc?: Yes Problem Qualifiers (1) Schizophrenia: Qualified Code: F20.0 - Paranoid schizophrenia Carmen Rios MD April 08, 2017 13:05
[2017-04-08 17:20] VITALS: BP 176/110; PULSE 103; RESP 18; TEMP 98.6; O2SAT 97
[2017-04-09] MEDS: LEVOTHYROXINE SODIUM 100 MCG TAB PO SCH (05:42)
[2017-04-09] MEDS: INSULIN ASPART SUPPLEMENTAL SCALE SQ SCH ×4 (05:43→20:59)
[2017-04-09 06:41] VITALS: BP 177/92; PULSE 102; RESP 18; TEMP 98.3; O2SAT 96
[2017-04-09] MEDS: metFORMIN HCL 500 MG TAB PO SCH ×2 (08:09→17:50)
[2017-04-09] MEDS: ASPIRIN EC 81 MG TABEC PO SCH (08:09)
[2017-04-09] MEDS: PANTOPRAZOLE SOD 20 MG DELAYED RELEASE TAB PO SCH (08:09)
[2017-04-09] MEDS: DOCUSATE SODIUM 100 MG CAP PO SCH (08:10)
[2017-04-09] MEDS: risperiDONE 1 MG TAB PO SCH ×2 (08:10→20:59)
--- NOTE | 2017-04-09 12:06 | HHI.PYPN ---
Subjective Remarks Pt seen and discussed with staff. She continues to improve. She initially refused accucheck this morning but later allowed it. Paranoia is decreased. No SI/HI Objective Alert: Yes [place]: Person, Place, Situation Mood: Calm Affect: Euthymic Memory Intact: Comment (not formally assessed) Hallucinations: Other (no AVH) Delusions: Yes Delusion Type: Paranoid (paranoia with themes of contamination) Suicidal: Ideation (no SI) Homicidal: Ideation (no HI) Insight/Judgment poor Vitals/IOs Vital Signs Date Time Temp Pulse Resp B/P Pulse Ox O2 Delivery O2 Flow Rate FiO2 04/09/17 06:41 98.3 102 18 177/92 96 Assessment & Plan Problem List: (1) Schizophrenia ICD Code: F20.9 Assessment & Plan Continue current tx plan. Estimated LOS: days Justification for Cont. Inpt. risk of decompensation Request HC Surrog/Guard Advoc?: Yes Problem Qualifiers (1) Schizophrenia: Qualified Code: F20.0 - Paranoid schizophrenia Carmen Rios MD April 09, 2017 12:06
[2017-04-10 05:15] VITALS: BP 148/96; PULSE 85; RESP 18; TEMP 98.4; O2SAT 98
[2017-04-10] MEDS: LEVOTHYROXINE SODIUM 100 MCG TAB PO SCH (05:58)
[2017-04-10] MEDS: INSULIN ASPART SUPPLEMENTAL SCALE SQ SCH ×4 (06:31→21:00)
[2017-04-10] MEDS: PANTOPRAZOLE SOD 20 MG DELAYED RELEASE TAB PO SCH (09:00)
[2017-04-10] MEDS: metFORMIN HCL 500 MG TAB PO SCH ×2 (09:00→17:22)
[2017-04-10] MEDS: ASPIRIN EC 81 MG TABEC PO SCH (09:00)
[2017-04-10] MEDS: DOCUSATE SODIUM 100 MG CAP PO SCH (09:00)
[2017-04-10] MEDS: risperiDONE 1 MG TAB PO SCH ×2 (09:00→21:30)
--- NOTE | 2017-04-10 12:54 | HHI.PYPN ---
Subjective Remarks Patient seen and examined with nurse. Chart reviewed. Case discussed with nursing staff reports the patient has been nonadherent with medications and in particular refused her Risperdal this morning and so received Haldol IM as ordered. On my examination today, the patient continues to believe that her blood is contaminated and ruminates little on "the and purity of the blood." This seems to have some sort of tenriism overtones and the patient says that "God is able to carry me through," but it is also psychotic in nature, and the patient does say that the reason that she knows that it's contaminated is because of the way it looks when the nursing staff comes to check her Accu- Cheks. The patient remains resistant to taking psychotropic medications, not because they are causing her side effects but because she doesn't think that she needs them. She doesn't think that she has a mental illness. She denies any suicidal or homicidal ideation. She denies any audiovisual hallucinations but does remain somewhat internally preoccupied. She says that her long-term goal is to live independently by, perhaps in a sign of some degree of improvement, she says "I know I need some assistance right now, just for 2 months or so." No side effects from medications. No physical complaints except for feeling like her blood is contaminated. Review of Systems ROS Limitations: Psychotic, Poor Historian Except as stated in HPI: all other systems reviewed are Neg Objective Alert: Yes [place]: Person, Place, Situation Mood: Calm Affect: Blunted Memory Intact: Comment (not formally assessed) Hallucinations: Other (Denies AVH but does appear somewhat int stim) Delusions: Yes Delusion Type: Paranoid (contamination of blood with some tenriism overtones) Suicidal: Ideation (denies suicidal ideation) Homicidal: Ideation (denies homicidal ideation) Insight/Judgment Poor Remarks No motor abnormalities noted. Thought processes fairly linear within delusional system. Grooming and hygiene fair. Labs Labs reviewed. Vitals/IOs Vital Signs Date Time Temp Pulse Resp B/P Pulse Ox O2 Delivery O2 Flow Rate FiO2 04/10/17 05:15 98.4 85 18 148/96 98 Assessment & Plan Problem List: (1) Schizophrenia ICD Code: F20.9 Assessment & Plan Continue antipsychotic titration, Risperdal with Haldol IM backup. There are some signs of symptomatic improvement, but I would like to see more improvement before we commit to a long-acting injectable, and I hope that this improvement will be obtained by further titration of her antipsychotics. Continue to monitor on the inpatient psychiatric unit in the meantime. Continue other medications and care as ordered. Justification for Cont. Inpt. Impairment in reality construction. Medication changes in process. High risk for decompensation in a less restrictive environment. Discharge Planning Return to shelter setting once psychiatrically stabilized. Request HC Surrog/Guard Advoc?: Yes Problem Qualifiers (1) Schizophrenia: Qualified Code: F20.0 - Paranoid schizophrenia Ivan Montgomery MD April 10, 2017 12:53
[2017-04-11] MEDS: LEVOTHYROXINE SODIUM 100 MCG TAB PO SCH (05:40)
[2017-04-11] MEDS: INSULIN ASPART SUPPLEMENTAL SCALE SQ SCH ×4 (05:40→21:00)
[2017-04-11 06:00] VITALS: BP 143/84; PULSE 81; RESP 17; TEMP 98.9; O2SAT 100
[2017-04-11] MEDS: risperiDONE 1 MG TAB PO SCH ×2 (08:36→21:53)
[2017-04-11] MEDS: PANTOPRAZOLE SOD 20 MG DELAYED RELEASE TAB PO SCH (08:38)
[2017-04-11] MEDS: DOCUSATE SODIUM 100 MG CAP PO SCH (08:38)
[2017-04-11] MEDS: ASPIRIN EC 81 MG TABEC PO SCH (08:38)
[2017-04-11] MEDS: metFORMIN HCL 500 MG TAB PO SCH ×2 (08:38→18:00)
--- NOTE | 2017-04-11 13:40 | PD.TTN ---
Present for Treatment Team Treatment Team Staff: Provider, Psych Therapist, Occupational Therapist Patient Problems 1. Discharge planning 2. Medication compliance 3. Knowledge deficit 4. Lack of coping skills Progress Toward Goals Provider Input: Patient will be given an injection of Invega Sustenna to help with patient's medication complicance. Looking for discharge either this Monday or Monday of next week. Psych Therapist Input: Patient was seen acting appropriately outside in fresh air activity this moring. Patient was pleasant, cooperative, childlike, affect blunted. Patient continues to have poor insight into her situation and believes she does not have any mental issues that require medication. Due to patient's non compliance patient will be placed on a long acting injection. Patient denies suicidal and homicidal ideation. Patient does not present with internal stimulation but does present with delusional content of paranoia. Patient's long term has been contacted to see if patient is able to return. This counselor at this time has not been able to reach facililty to verify. Ancillary Staff Input: Patient has been attending groups and being more sociable Tri St[facility] April 11, 2017 13:40
--- NOTE | 2017-04-11 17:24 | HHI.PYPN ---
Subjective Remarks Patient seen and examined. Chart reviewed. I note that the patient has continued to fairly consistently refuse her medical medications including her Synthroid, metformin and antihypertensives. Case discussed in treatment team. On my examination today, patient reports that the Risperdal is helping her to feel more relaxed. She has some baptism preoccupation. She also references a male friend that she knows from outside of the hospital, with whom she believes that she is in contact via vibrations. No side effects from medications. No physical complaints. Review of Systems ROS Limitations: Psychotic, Poor Historian Except as stated in HPI: all other systems reviewed are Neg Objective Alert: Yes [place]: Person, Place Mood: Calm Affect: Blunted Memory Intact: Comment (Not assessed) Hallucinations: Other (No AVH) Delusions: Yes Delusion Type: Paranoid (baptism preoccupation. Communicating by vibrations. ) Suicidal: Ideation (No SI) Homicidal: Ideation (No HI) Insight/Judgment Poor Remarks No motoric abnormalities noted. Labs Labs reviewed. No new labs. Vitals/IOs Vital Signs Date Time Temp Pulse Resp B/P Pulse Ox O2 Delivery O2 Flow Rate FiO2 04/10/17 05:15 98.4 85 18 148/96 98 BP this am 143/84 other VSS. Assessment & Plan Problem List: (1) Schizophrenia ICD Code: F20.9 Assessment & Plan Titrate Risperdal to 4mg BID to target psychosis. Continue Haldol IM backup. Ongoing refusal of medical meds, which I suspect may have a psychotic basis, is concerning and may necessitate modification of antipsychotic therapy. Continue clonidine patch for HTN. Continue to monitor on inpatient unit. Continue other medications and care as ordered. Justification for Cont. Inpt. Impairment in self-care; refusing medical medications. Impairment in reality construction. High risk for decompensation in a less restrictive environment. Discharge Planning Return to senior living pending psychiatric stabilization. Request HC Surrog/Guard Advoc?: Yes Problem Qualifiers (1) Schizophrenia: Qualified Code: F20.0 - Paranoid schizophrenia Ivan Montgomery MD April 11, 2017 17:24
[2017-04-11] MEDS ORDERED: HALOPERIDOL LACTATE 5 MG/ML AMP IM PRN (17:45)
[2017-04-12] MEDS: LEVOTHYROXINE SODIUM 100 MCG TAB PO SCH (05:48)
[2017-04-12] MEDS: INSULIN ASPART SUPPLEMENTAL SCALE SQ SCH ×4 (05:53→20:39)
[2017-04-12 06:11] VITALS: BP 160/85; PULSE 84; RESP 18; TEMP 98.9; O2SAT 99
[2017-04-12] MEDS: risperiDONE 1 MG TAB PO SCH ×2 (08:35→21:08)
[2017-04-12] MEDS: metFORMIN HCL 500 MG TAB PO SCH ×2 (08:35→17:28)
[2017-04-12] MEDS: DOCUSATE SODIUM 100 MG CAP PO SCH (08:35)
[2017-04-12] MEDS: ASPIRIN EC 81 MG TABEC PO SCH (08:35)
[2017-04-12] MEDS: PANTOPRAZOLE SOD 20 MG DELAYED RELEASE TAB PO SCH (08:35)
--- NOTE | 2017-04-12 15:41 | HHI.PYPN ---
Subjective Remarks Patient seen and examined with nurse. Chart reviewed. Case discussed with nursing staff reports that patient was medication compliant this morning. On my examination today, the patient is in good spirits. She denies any vibrations or other psychotic material. She denies any audiovisual hallucinations. She denies any suicidal or homicidal ideation. She is tolerating psychotropics well without side effects. No physical complaints. We discussed the options regarding long-acting injectable antipsychotics, and the patient prefers to try Invega Sustenna. Review of Systems ROS Limitations: Poor Historian Except as stated in HPI: all other systems reviewed are Neg Objective Alert: Yes [place]: Person, Place Mood: Calm Affect: Euthymic Memory Intact: Comment (Not assessed) Hallucinations: Other (denies audiovisual hallucinations) Delusions: No Delusion Type: Other (no kip delusional beliefs) Suicidal: Ideation (denies suicidal ideation) Homicidal: Ideation (denies homicidal ideation) Insight/Judgment Poor Remarks No abnormal motor movements noted. Thought process fairly linear. Grooming and hygiene fair. Labs Labs reviewed. No new labs. Vitals/IOs Vital Signs Date Time Temp Pulse Resp B/P Pulse Ox O2 Delivery O2 Flow Rate FiO2 04/12/17 06:11 98.9 84 18 160/85 99 Assessment & Plan Problem List: (1) Schizophrenia ICD Code: F20.9 Assessment & Plan Initiate Invega Sustenna 234 mg IM today. Plan for booster dose of Invega Sustenna in 4-7 days as recommended by mechanical technician. Temporarily continue Risperdal with plans to discontinue prior to discharge as oral supplementation is not required with Invega Sustenna. Encouraged patient to continue to accept medical medications. Continue to monitor on the inpatient psychiatric unit. Continue other medications and care as ordered. Justification for Cont. Inpt. Medication changes in process. High risk for decompensation in a less restrictive environment. Discharge Planning Hopeful to discharge the patient back to her longterm end of this week or beginning of next week. Request HC Surrog/Guard Advoc?: Yes Problem Qualifiers (1) Schizophrenia: Qualified Code: F20.0 - Paranoid schizophrenia Ivan Montgomery MD April 12, 2017 15:41
[2017-04-12 16:00] VITALS: BP 182/108; PULSE 89; RESP 18; TEMP 97.6; O2SAT 100
[2017-04-12] MEDS ORDERED: PALIPERIDONE PALMITATE 234 MG/1.5 ML SYRINGE IM ONE (17:00)
[2017-04-12] MEDS: cloNIDine HCL 0.1 MG TAB PO PRN (17:28)
[2017-04-12] MEDS ORDERED: cloNIDine HCL 0.2 MG/24 HR PATCH T-DERMAL SCH (18:00)
[2017-04-12] MEDS ORDERED: REMOVE OLD PATCH T-DERMAL SCH (18:00)
[2017-04-12 18:51] VITALS: BP 139/92
[2017-04-13 05:28] VITALS: BP 160/88; PULSE 78; RESP 26; TEMP 97.9; O2SAT 99
[2017-04-13] MEDS: LEVOTHYROXINE SODIUM 100 MCG TAB PO SCH (06:05)
[2017-04-13] MEDS: INSULIN ASPART SUPPLEMENTAL SCALE SQ SCH ×4 (06:18→21:00)
[2017-04-13] MEDS: DOCUSATE SODIUM 100 MG CAP PO SCH ×2 (08:46→20:54)
[2017-04-13] MEDS: ASPIRIN EC 81 MG TABEC PO SCH (08:46)
[2017-04-13] MEDS: metFORMIN HCL 500 MG TAB PO SCH ×3 (08:46→17:29)
[2017-04-13] MEDS: PANTOPRAZOLE SOD 20 MG DELAYED RELEASE TAB PO SCH (08:46)
[2017-04-13] MEDS: risperiDONE 1 MG TAB PO SCH ×2 (08:47→20:53)
--- NOTE | 2017-04-13 11:30 | HHI.PYPN ---
Subjective Remarks Patient seen and examined with nurse. Chart reviewed. Case discussed with nursing staff. On my examination today, the patient is calm and pleasant. She does not verbalize any psychotic material. She did accept her medical medications. She remains agreeable to the plan of care. Denies side effects from medications. No physical complaints besides constipation 2 days, still passing flatus. Review of Systems ROS Limitations: Poor Historian Except as stated in HPI: all other systems reviewed are Neg Objective Alert: Yes [place]: Person, Place Mood: Calm Affect: Euthymic Memory Intact: Comment (Not assessed) Hallucinations: Other (denies audiovisual hallucinations) Delusions: No Delusion Type: Other (no delusions) Suicidal: Ideation (no SI) Homicidal: Ideation (no HI) Insight/Judgment Poor Remarks No motor abnormalities noted. Labs Labs reviewed. No new labs. Vitals/IOs Vital Signs Date Time Temp Pulse Resp B/P Pulse Ox O2 Delivery O2 Flow Rate FiO2 04/13/17 05:28 97.9 78 26 160/88 99 Assessment & Plan Problem List: (1) Schizophrenia ICD Code: F20.9 Assessment & Plan Continue Risperdal PO supplementing Invega Sustenna, which patient received without incident yesterday. Plan for Sustenna booster over weekend. Now that the patient is accepting her medical meds, I will stop Catapres patch and add back lisinopril. Increase Colace to twice a day for constipation and add Dulcolax as needed. Continue to monitor on the inpatient unit. Continue other medications and care as ordered. Patient's case was presented to the [place] [facility] and placed in continuance for a period of 4 weeks. Justification for Cont. Inpt. Medication changes in progress. High risk for decompensation in a less restrictive setting. Discharge Planning Return to [facility] setting, most likely after administration of Invega Sustenna booster. Request HC Surrog/Guard Advoc?: No (patient judged capacitated to make medical decisions.) Problem Qualifiers (1) Schizophrenia: Qualified Code: F20.0 - Paranoid schizophrenia Ivan Montgomery MD Apr 13, 2017 11:30
[2017-04-13] MEDS ORDERED: BISACODYL EC 5 MG TABEC PO PRN (14:00)
[2017-04-13 16:00] VITALS: BP 165/81; PULSE 74; RESP 17; TEMP 98.3; O2SAT 98
[2017-04-14] MEDS: LEVOTHYROXINE SODIUM 100 MCG TAB PO SCH (06:10)
[2017-04-14] MEDS: INSULIN ASPART SUPPLEMENTAL SCALE SQ SCH ×4 (07:00→21:00)
[2017-04-14] MEDS: LISINOPRIL 20 MG TAB PO SCH (08:31)
[2017-04-14] MEDS: risperiDONE 1 MG TAB PO SCH ×2 (08:31→21:00)
[2017-04-14] MEDS: PANTOPRAZOLE SOD 20 MG DELAYED RELEASE TAB PO SCH (08:31)
[2017-04-14] MEDS: DOCUSATE SODIUM 100 MG CAP PO SCH ×2 (08:31→21:00)
[2017-04-14] MEDS: metFORMIN HCL 500 MG TAB PO SCH ×2 (08:31→17:37)
[2017-04-14] MEDS: ASPIRIN EC 81 MG TABEC PO SCH (08:33)
--- NOTE | 2017-04-14 13:00 | HHI.PYPN ---
Subjective Remarks Patient seen and examined with counselor and nurse. Chart reviewed. Case discussed with nursing staff reports that the patient remains somewhat internally preoccupied but has been no behavioral problem. On my examination today, the patient complains of vaginal malodor without dysuria or discharge. RN has performed perineal assessment and notes no issues with malodor. Otherwise, patient has no physical complaints. She is in good spirits. No SI/ HI/AVH. Tolerating psychotropics well without side effects. Review of Systems ROS Limitations: Poor Historian Except as stated in HPI: all other systems reviewed are Neg Objective Alert: Yes [place]: Person, Place Mood: Calm Affect: Euthymic (remains euthymic) Memory Intact: Comment (Not assessed) Hallucinations: Other (No AVH) Delusions: No Delusion Type: Other (No delusional material) Suicidal: Ideation (no SI) Homicidal: Ideation (no HI) Insight/Judgment Poor Remarks No motor abnormalities noted. Labs Labs reviewed. No new labs. Vitals/IOs Vital Signs Date Time Temp Pulse Resp B/P Pulse Ox O2 Delivery O2 Flow Rate FiO2 04/13/17 16:00 98.3 74 17 165/81 98 Assessment & Plan Problem List: (1) Schizophrenia ICD Code: F20.9 Assessment & Plan I have ordered booster dose of Invega Sustenna for Monday morning. Continue Risperdal as ordered with plans to discontinue after booster dose is administered. Will follow gynecologic complaints. Continue to monitor on the inpatient unit. Continue other medications and care as ordered. Justification for Cont. Inpt. Medication changes planned. High risk for decompensation in a less restrictive environment. Discharge Planning From counselors notes, I see that the patient has lost [facility]. We will therefore need to explore new placement options. Request HC Surrog/Guard Advoc?: No (patient judged capacitated to make medical decisions.) Problem Qualifiers (1) Schizophrenia: Qualified Code: F20.0 - Paranoid schizophrenia Ivan Montgomery MD Apr 14, 2017 13:00
[2017-04-14 17:19] VITALS: BP 137/71; PULSE 75; RESP 18; TEMP 97.9; O2SAT 99
[2017-04-15 06:22] VITALS: BP 141/90; PULSE 70; RESP 16; TEMP 98.7; O2SAT 100
[2017-04-15] MEDS: PANTOPRAZOLE SOD 20 MG DELAYED RELEASE TAB PO SCH (09:04)
[2017-04-15] MEDS: LISINOPRIL 20 MG TAB PO SCH (09:04)
[2017-04-15] MEDS: risperiDONE 1 MG TAB PO SCH ×2 (09:04→21:19)
[2017-04-15] MEDS: ASPIRIN EC 81 MG TABEC PO SCH (09:05)
[2017-04-15] MEDS: metFORMIN HCL 500 MG TAB PO SCH ×2 (09:05→17:56)
[2017-04-15] MEDS: DOCUSATE SODIUM 100 MG CAP PO SCH ×2 (09:05→21:00)
[2017-04-15] MEDS: LEVOTHYROXINE SODIUM 100 MCG TAB PO SCH (09:05)
[2017-04-15] MEDS: INSULIN ASPART SUPPLEMENTAL SCALE SQ SCH ×3 (11:00→21:27)
--- NOTE | 2017-04-15 16:16 | HHI.PYPN ---
Subjective Remarks Pt seen and discussed with staff. She denies SI/HI. She refused medications last night but was compliant today. No disruptive behavior. She has been isolative to her room. No gynecological complaints. Objective Alert: Yes [place]: Person, Place Mood: Calm Affect: Restricted Memory Intact: Comment (Not assessed) Hallucinations: Other (No AVH) Delusions: No Delusion Type: Other (No delusional material) Suicidal: Ideation (no SI) Homicidal: Ideation (no HI) Insight/Judgment poor Vitals/IOs Vital Signs Date Time Temp Pulse Resp B/P Pulse Ox O2 Delivery O2 Flow Rate FiO2 04/15/17 06:22 98.7 70 16 141/90 100 Assessment & Plan Problem List: (1) Schizophrenia ICD Code: F20.9 Assessment & Plan Continue current tx plan. Estimated LOS: days Justification for Cont. Inpt. decompensation at lower level of care Request HC Surrog/Guard Advoc?: No (patient judged capacitated to make medical decisions.) Problem Qualifiers (1) Schizophrenia: Qualified Code: F20.0 - Paranoid schizophrenia Carmen Rios MD Apr 15, 2017 4:16 pm
[2017-04-15 18:37] VITALS: BP 120/72; PULSE 83; RESP 17; TEMP 98.1; O2SAT 100
[2017-04-16] MEDS: LEVOTHYROXINE SODIUM 100 MCG TAB PO SCH (05:55)
[2017-04-16] MEDS: INSULIN ASPART SUPPLEMENTAL SCALE SQ SCH ×4 (06:04→21:00)
[2017-04-16 06:29] VITALS: BP 144/87; PULSE 66; RESP 16; TEMP 98; O2SAT 96
[2017-04-16] MEDS ORDERED: PALIPERIDONE PALMITATE 156 MG/ML SYRINGE IM ONE (09:00)
[2017-04-16] MEDS: ASPIRIN EC 81 MG TABEC PO SCH (09:13)
[2017-04-16] MEDS: DOCUSATE SODIUM 100 MG CAP PO SCH ×2 (09:13→21:00)
[2017-04-16] MEDS: metFORMIN HCL 500 MG TAB PO SCH ×2 (09:13→18:09)
[2017-04-16] MEDS: PANTOPRAZOLE SOD 20 MG DELAYED RELEASE TAB PO SCH (09:13)
[2017-04-16] MEDS: LISINOPRIL 20 MG TAB PO SCH (09:13)
[2017-04-16] MEDS: risperiDONE 1 MG TAB PO SCH ×2 (09:14→21:07)
[2017-04-16] MEDS: cloNIDine HCL 0.1 MG TAB PO PRN (16:09)
--- NOTE | 2017-04-16 18:25 | HHI.PYPN ---
Subjective Remarks Pt seen and discussed with staff. She refused invega today stating that she does not need medications. Staff report more mu-ism fixations today. No SI/HI Objective Alert: Yes [place]: Person, Place Mood: Calm Affect: Restricted Memory Intact: Comment (Not assessed) Hallucinations: Other (No AVH) Delusions: Yes Delusion Type: Other (mu-ism) Suicidal: Ideation (no SI) Homicidal: Ideation (no HI) Insight/Judgment poor Vitals/IOs Vital Signs Date Time Temp Pulse Resp B/P Pulse Ox O2 Delivery O2 Flow Rate FiO2 04/16/17 06:29 98.0 66 16 144/87 96 Assessment & Plan Problem List: (1) Schizophrenia ICD Code: F20.9 Assessment & Plan Continue current tx plan. Encourage medication compliance. Estimated LOS: days Justification for Cont. Inpt. impairments in self care and reality construction Request HC Surrog/Guard Advoc?: No (patient judged capacitated to make medical decisions.) Problem Qualifiers (1) Schizophrenia: Qualified Code: F20.0 - Paranoid schizophrenia Carmen Rios MD Apr 16, 2017 18:25
[2017-04-16 18:26] VITALS: BP 179/103; PULSE 89; RESP 18; TEMP 98.1; O2SAT 98
[2017-04-16 18:38] VITALS: BP 135/82; PULSE 82; RESP 20; TEMP 98.6; O2SAT 100
[2017-04-17] MEDS: LEVOTHYROXINE SODIUM 100 MCG TAB PO SCH (06:08)
[2017-04-17] MEDS: INSULIN ASPART SUPPLEMENTAL SCALE SQ SCH ×4 (06:08→20:27)
[2017-04-17 06:51] VITALS: BP 136/92; PULSE 78; RESP 17; TEMP 97.6; O2SAT 96
[2017-04-17] MEDS: DOCUSATE SODIUM 100 MG CAP PO SCH ×2 (09:07→20:26)
[2017-04-17] MEDS: ASPIRIN EC 81 MG TABEC PO SCH (09:07)
[2017-04-17] MEDS: PANTOPRAZOLE SOD 20 MG DELAYED RELEASE TAB PO SCH (09:07)
[2017-04-17] MEDS: metFORMIN HCL 500 MG TAB PO SCH ×2 (09:07→17:14)
[2017-04-17] MEDS: risperiDONE 1 MG TAB PO SCH ×2 (09:07→20:26)
[2017-04-17] MEDS: LISINOPRIL 20 MG TAB PO SCH (09:07)
--- NOTE | 2017-04-17 11:35 | HHI.PYPN ---
Subjective Remarks Patient seen and examined with nurse. Chart reviewed. Case discussed with nursing staff who reports patient has been a behavioral problem. On my examination today, the patient is in good spirits. I discussed with her the difficulties with her current placement and the need to find new placement, and she seems to take this information in stride. She is hoping for a [place] resolution to her housing issue. She did refuse her Invega Sustenna over the weekend, and I have discussed her reasons for doing so with her and she says "I want to do this on my own." There is some mobilization of affect in the course of this discussion. We discuss need for psychotropic medications, analogizing it to other medical conditions that requires chronic treatment, and she seems to accept this. No side effects from medications. No physical complaints. Review of Systems ROS Limitations: Poor Historian Except as stated in HPI: all other systems reviewed are Neg Objective Alert: Yes [place]: Person, Place Mood: Calm Affect: Euthymic (generally euthymic) Memory Intact: Comment (not formally assessed) Hallucinations: Other (no audiovisual hallucinations) Delusions: No Delusion Type: Other (no delusions) Suicidal: Ideation (no suicidal ideation) Homicidal: Ideation (no homicidal ideation) Insight/Judgment Poor, likely chronically so Remarks No motor abnormalities noted Labs Labs reviewed Vitals/IOs Vital Signs Date Time Temp Pulse Resp B/P Pulse Ox O2 Delivery O2 Flow Rate FiO2 04/17/17 06:51 97.6 78 17 136/92 96 Intake and Output 04/16/17 04/16/17 04/17/17 08:00 16:00 00:00 Intake Total 600 ml Balance 600 ml Assessment & Plan Problem List: (1) Schizophrenia ICD Code: F20.9 Assessment & Plan After our discussion, the patient agrees to accept Invega Sustenna 156 mg today , and I've reordered this. I will taper patient's oral Risperdal to 2 mg twice daily. Continue to monitor on the inpatient unit. Continue other medications and care as ordered. Justification for Cont. Inpt. High risk for decompensation in a less restrictive environment. Discharge Planning Patient will require new placement Request HC Surrog/Guard Advoc?: No Problem Qualifiers (1) Schizophrenia: Qualified Code: F20.0 - Paranoid schizophrenia Ivan Montgomery MD Apr 17, 2017 11:35
[2017-04-17] MEDS ORDERED: PALIPERIDONE PALMITATE 156 MG/ML SYRINGE IM ONE (12:00)
[2017-04-17 16:00] VITALS: BP 158/90; PULSE 81; RESP 18; TEMP 98.3; O2SAT 97
[2017-04-18 05:35] VITALS: BP 158/91; PULSE 98; RESP 18; TEMP 98.1; O2SAT 100
[2017-04-18] MEDS: LEVOTHYROXINE SODIUM 100 MCG TAB PO SCH (05:47)
[2017-04-18] MEDS: INSULIN ASPART SUPPLEMENTAL SCALE SQ SCH ×2 (06:10→10:31)
[2017-04-18] MEDS: DOCUSATE SODIUM 100 MG CAP PO SCH ×2 (09:00→20:11)
[2017-04-18] MEDS: risperiDONE 1 MG TAB PO SCH (09:00)
[2017-04-18] MEDS: PANTOPRAZOLE SOD 20 MG DELAYED RELEASE TAB PO SCH (09:01)
[2017-04-18] MEDS: metFORMIN HCL 500 MG TAB PO SCH ×2 (09:01→17:55)
[2017-04-18] MEDS: LISINOPRIL 20 MG TAB PO SCH (09:01)
[2017-04-18] MEDS: ASPIRIN EC 81 MG TABEC PO SCH (09:01)
--- NOTE | 2017-04-18 10:37 | PD.TTN ---
Present for Treatment Team Treatment Team Staff: Provider, Nurse, Psych Therapist, Clinical Specialist Patient Problems 1. Discharge planning 2. Medication compliance 3. Knowledge deficit 4. Lack of coping skills Progress Toward Goals Provider Input: Dr. Montgomery treatment team met to discuss patient's treatment plan, medication, and discharge plan. Patient was given an injection yesterday. Patient doing well. Nurse Input: Patient's nurse Reema stated, "patient presents tired, pleasant no behavioral problem on unit. Patient is eating and sleeping well. Psych Therapist Input: Patient presents tired, pleasant, cooperative, affect appropriate. Patient's made good eye contact. Patient's continues to have poor insight into her mental illness.Patient is eating and sleeping well. Patient has been no behavioral problem on unit. Patient denies suicidal and homicidal ideation. Placement is being looked out. [facility] came to see patient yesterday. Several other refer packets will sent out today on patient's behalf. Lorie Adam Clinical Specialist Input: Vinnie DRISCOLL reports patient attends and participates in groups frequently. Tri Starr [facility] Apr 18, 2017 10:37
--- NOTE | 2017-04-18 12:09 | HHI.PYPN ---
Subjective Remarks Patient seen and examined. Chart reviewed. Case discussed in treatment team with counselor, nurse and occupational therapist. Nurse and occupational therapist note that the patient seems a little more sleepy today. On my examination today, the patient is in good spirits. She does complain of feeling somewhat more sedated, although she says this feeling is passing. Denies audiovisual hallucinations. No suicidal or homicidal ideation. She does have a mild hand tremor with no associated cogwheeling or other motoric phenomena, and I offer to start scheduled anticholinergic, but the patient prefers to do without for now after discussion of the risks and benefits. We discussed disposition plan, and the patient remains agreeable to new placement. Review of Systems ROS Limitations: Poor Historian Except as stated in HPI: all other systems reviewed are Neg Objective Alert: Yes [place]: Person, Place Mood: Calm Affect: Euthymic Memory Intact: Comment (Not assessed) Hallucinations: Other (Denies AVH) Delusions: No Delusion Type: Other (No delusional material) Suicidal: Ideation (No SI) Homicidal: Ideation (No HI) Insight/Judgment Poor Remarks Mild resting hand tremor. No cog-wheeling. No masked facies. TP linear. Grooming and hygiene fair. Labs Labs reviewed. Vitals/IOs Vital Signs Date Time Temp Pulse Resp B/P Pulse Ox O2 Delivery O2 Flow Rate FiO2 04/18/17 05:35 98.1 98 18 158/91 100 Assessment & Plan Problem List: (1) Schizophrenia ICD Code: F20.9 Assessment & Plan Discontinue oral Risperdal to lessen mild sedation and also hopefully lessen mild hand tremor. Patient has Invega Sustenna on board. Patient declines scheduled anticholinergic but had Cogentin available PRN. Continue to monitor on the inpatient unit. Continue other medications and care as ordered. Justification for Cont. Inpt. Medication changes in process. High risk for decompensation in a less restrictive environment. Discharge Planning Counselor reports that one facility, [facility], is considering the patient for admission. Request HC Surrog/Guard Advoc?: No Problem Qualifiers (1) Schizophrenia: Qualified Code: F20.0 - Paranoid schizophrenia Ivan Montgomery MD Apr 18, 2017 12:09
[2017-04-18 16:24] VITALS: BP 166/89; PULSE 101; RESP 18; TEMP 98.9; O2SAT 98
[2017-04-19] MEDS: LEVOTHYROXINE SODIUM 100 MCG TAB PO SCH (05:10)
[2017-04-19 05:38] VITALS: BP 137/83; PULSE 81; RESP 18; TEMP 98.3; O2SAT 97
[2017-04-19] MEDS: DOCUSATE SODIUM 100 MG CAP PO SCH ×2 (09:00→21:40)
[2017-04-19] MEDS: ASPIRIN EC 81 MG TABEC PO SCH (09:15)
[2017-04-19] MEDS: metFORMIN HCL 500 MG TAB PO SCH (09:15)
[2017-04-19] MEDS: PANTOPRAZOLE SOD 20 MG DELAYED RELEASE TAB PO SCH (09:15)
[2017-04-19] MEDS: LISINOPRIL 20 MG TAB PO SCH (09:15)
--- NOTE | 2017-04-19 11:44 | HHI.PYPN ---
Subjective Remarks Patient seen and examined with counselor and nurse. Chart reviewed. Case discussed with nursing staff who reports the patient has been no behavioral problem or had any other issues on the unit. On my examination today, the patient is in good spirits. Still no psychotic symptoms or mood symptoms. The patient feels ready for discharge. No side effects from medications. Feels less sedated now that we have discontinued oral Risperdal. No physical complaints. Remains agreeable to taking monthly Invega Sustenna injections. Review of Systems Except as stated in HPI: all other systems reviewed are Neg Objective Alert: Yes [place]: Person, Place Mood: Calm Affect: Appropriate Memory Intact: Comment (not formally assessed) Hallucinations: Other (Denies AVH) Delusions: No Delusion Type: Other (no delusions) Suicidal: Ideation (No SI) Homicidal: Ideation (No HI) Insight/Judgment Poor, likely chronically so Remarks No motor abnormalities noted. Labs Labs reviewed. Vitals/IOs Vital Signs Date Time Temp Pulse Resp B/P Pulse Ox O2 Delivery O2 Flow Rate FiO2 04/19/17 05:38 98.3 81 18 137/83 97 Intake and Output 04/18/17 04/18/17 04/19/17 08:00 16:00 00:00 Intake Total 840 ml Balance 840 ml Assessment & Plan Problem List: (1) Schizophrenia ICD Code: F20.9 Assessment & Plan Continue monthly Invega Sustenna injections. Continue to monitor on the inpatient unit. Continue other medications and care as ordered. Justification for Cont. Inpt. Risk for decompensation Discharge Planning Counselor is working to arrange discharge to assisted living facility, hopefully within the next day or 2. Request HC Surrog/Guard Advoc?: No Problem Qualifiers (1) Schizophrenia: Qualified Code: F20.0 - Paranoid schizophrenia Ivan Montgomery MD Apr 19, 2017 11:44
[2017-04-19 22:05] VITALS: BP 156/94; PULSE 89; RESP 17; TEMP 98; O2SAT 98
[2017-04-20] MEDS: LEVOTHYROXINE SODIUM 100 MCG TAB PO SCH (06:31)
[2017-04-20 08:27] VITALS: BP 134/82; PULSE 94; RESP 18
[2017-04-20] MEDS: metFORMIN HCL 500 MG TAB PO SCH ×3 (08:46→17:30)
[2017-04-20] MEDS: DOCUSATE SODIUM 100 MG CAP PO SCH ×2 (08:46→20:53)
[2017-04-20] MEDS: LISINOPRIL 20 MG TAB PO SCH (08:46)
[2017-04-20] MEDS: ASPIRIN EC 81 MG TABEC PO SCH (08:46)
[2017-04-20] MEDS: PANTOPRAZOLE SOD 20 MG DELAYED RELEASE TAB PO SCH (08:46)
--- NOTE | 2017-04-20 14:08 | HHI.PYPN ---
Subjective Remarks Patient seen and examined. Chart reviewed. Case discussed with nursing staff. No behavioral issues noted. On my examination today, patient remains in good spirits. I discussed the case with counselor and unfortunately the patient was not accepted at [facility], but the counselor has initiated 6 new referrals and is hopeful for one in particular to accept the patient. I have discussed this with the patient and she remains agreeable to placement and hopeful that it will happen soon. No psychotic symptoms. No SI or HI. No side effects from medications. No physical complaints. Review of Systems ROS Limitations: Poor Historian Except as stated in HPI: all other systems reviewed are Neg Objective Alert: Yes [place]: Person, Place Mood: Calm Affect: Appropriate, Euthymic Memory Intact: Comment (Not assessed today) Hallucinations: Other (No AVH) Delusions: No Delusion Type: Other (No delusional material) Suicidal: Ideation (No SI) Homicidal: Ideation (No HI) Insight/Judgment Poor Remarks No motor abnormalities noted Labs Labs reviewed Vitals/IOs Vital Signs Date Time Temp Pulse Resp B/P Pulse Ox O2 Delivery O2 Flow Rate FiO2 04/20/17 08:27 94 18 134/82 04/19/17 22:05 98.0 98 Intake and Output 04/19/17 04/19/17 04/20/17 08:00 16:00 00:00 Intake Total 360 ml Balance 360 ml Assessment & Plan Problem List: (1) Schizophrenia ICD Code: F20.9 Assessment & Plan Patient receiving monthly Invega Sustenna injections. Continue to monitor on the inpatient unit. Continue other medications and care as ordered. Justification for Cont. Inpt. High risk for decompensation in a less restrictive environment. Discharge Planning Placement, hopefully in relatively short order. Request HC Surrog/Guard Advoc?: No Problem Qualifiers (1) Schizophrenia: Qualified Code: F20.0 - Paranoid schizophrenia Ivan Montgomery MD Apr 20, 2017 14:08
[2017-04-20 19:23] VITALS: BP 145/64; PULSE 76; RESP 17; TEMP 98.9; O2SAT 99
[2017-04-21] MEDS: LEVOTHYROXINE SODIUM 100 MCG TAB PO SCH (05:46)
[2017-04-21 06:04] VITALS: BP 140/83; PULSE 71; RESP 16; TEMP 97.7; O2SAT 100
[2017-04-21] MEDS: metFORMIN HCL 500 MG TAB PO SCH ×2 (08:40→18:04)
[2017-04-21] MEDS: PANTOPRAZOLE SOD 20 MG DELAYED RELEASE TAB PO SCH (08:40)
[2017-04-21] MEDS: LISINOPRIL 20 MG TAB PO SCH (08:40)
[2017-04-21] MEDS: ASPIRIN EC 81 MG TABEC PO SCH (08:40)
[2017-04-21] MEDS: DOCUSATE SODIUM 100 MG CAP PO SCH ×2 (09:00→21:00)
--- NOTE | 2017-04-21 12:17 | HHI.PYPN ---
Subjective Remarks Patient seen and examined with counselor and nurse. Chart reviewed. Case discussed with nursing staff. No behavioral issues noted. On my examination today, the patient seems a touch more irritable than in previous visits. Extended hospital stay seems to be wearing on her. No reported side effects from medications although the patient does have a resting hand tremor. Hopeful for discharge soon. I discussed the referrals to assisted living settings that have been made by the counselor. No physical complaints. Review of Systems Except as stated in HPI: all other systems reviewed are Neg Objective Alert: Yes [place]: Person, Place Mood: Calm Affect: Restricted Memory Intact: Comment (Not assessed today) Hallucinations: Other (none) Delusions: No Delusion Type: Other (no delusions) Suicidal: Ideation (No SI) Homicidal: Ideation (No HI) Insight/Judgment Poor Remarks Resting hand tremor noted. No other motoric abnormalities noted. Labs Labs reviewed. Vitals/IOs Vital Signs Date Time Temp Pulse Resp B/P Pulse Ox O2 Delivery O2 Flow Rate FiO2 04/21/17 06:04 97.7 71 16 140/83 100 Assessment & Plan Problem List: (1) Schizophrenia ICD Code: F20.9 Assessment & Plan Invega Sustenna on board. I will initiate Cogentin 1 mg twice daily for hand tremor. Continue to monitor on the inpatient unit. Continue other medications and care as ordered. Justification for Cont. Inpt. High risk for decompensation in a less restrictive environment. Discharge Planning Counselor reports that she has initiated 5 assisted living referrals. Hopeful for placement soon. Request HC Surrog/Guard Advoc?: No Problem Qualifiers (1) Schizophrenia: Qualified Code: F20.0 - Paranoid schizophrenia Ivan Montgomery MD Apr 21, 2017 12:17
[2017-04-21 18:30] VITALS: BP 146/93; PULSE 109; RESP 16; TEMP 98; O2SAT 98
[2017-04-21] MEDS: BENZTROPINE MESYLATE 1 MG TAB PO SCH (21:00)
[2017-04-22] MEDS: LEVOTHYROXINE SODIUM 100 MCG TAB PO SCH (05:34)
[2017-04-22 05:44] VITALS: BP 153/92; PULSE 71; RESP 18; TEMP 97.7; O2SAT 98
[2017-04-22] MEDS: DOCUSATE SODIUM 100 MG CAP PO SCH ×2 (08:42→21:04)
[2017-04-22] MEDS: metFORMIN HCL 500 MG TAB PO SCH ×2 (08:42→17:21)
[2017-04-22] MEDS: ASPIRIN EC 81 MG TABEC PO SCH (08:42)
[2017-04-22] MEDS: PANTOPRAZOLE SOD 20 MG DELAYED RELEASE TAB PO SCH (08:42)
[2017-04-22] MEDS: BENZTROPINE MESYLATE 1 MG TAB PO SCH ×2 (08:42→21:04)
[2017-04-22] MEDS: LISINOPRIL 20 MG TAB PO SCH (08:42)
--- NOTE | 2017-04-22 12:27 | HHI.PYPN ---
Subjective Remarks Patient was seen and case discussed with nursing. Patient is pleasant and cooperative with exam. Compliant with her medications. Has poor insight declaring she does not have psychotic her mood disorder. Behaving well on the unit. Sleeping and eating well. Somewhat preoccupied per nursing Objective Alert: Yes [place]: Person, Place Mood: Calm Affect: Blunted Memory Intact: Comment (Not assessed today) Hallucinations: Other (none) Delusions: No Delusion Type: Other (no delusions) Suicidal: Ideation (No SI) Homicidal: Ideation (No HI) Insight/Judgment Poor Vitals/IOs Vital Signs Date Time Temp Pulse Resp B/P Pulse Ox O2 Delivery O2 Flow Rate FiO2 04/22/17 05:44 97.7 71 18 153/92 98 Assessment & Plan Problem List: (1) Schizophrenia ICD Code: F20.9 Assessment & Plan Continue current treatment plan Justification for Cont. Inpt. Patient will decompensate in a less restrictive setting Request HC Surrog/Guard Advoc?: No Problem Qualifiers (1) Schizophrenia: Qualified Code: F20.0 - Paranoid schizophrenia Gordo Rausch DO Apr 22, 2017 12:27
[2017-04-22 18:13] VITALS: BP 180/86; PULSE 111; RESP 18; TEMP 98.4; O2SAT 100
[2017-04-22] MEDS: cloNIDine HCL 0.1 MG TAB PO PRN ×2 (21:08→23:45)
[2017-04-23] MEDS: LEVOTHYROXINE SODIUM 100 MCG TAB PO SCH (06:07)
[2017-04-23 06:21] VITALS: BP 139/87; PULSE 87; RESP 18; TEMP 98.7; O2SAT 100
[2017-04-23] MEDS: DOCUSATE SODIUM 100 MG CAP PO SCH ×2 (09:07→20:19)
[2017-04-23] MEDS: PANTOPRAZOLE SOD 20 MG DELAYED RELEASE TAB PO SCH (09:07)
[2017-04-23] MEDS: ASPIRIN EC 81 MG TABEC PO SCH (09:07)
[2017-04-23] MEDS: LISINOPRIL 20 MG TAB PO SCH (09:07)
[2017-04-23] MEDS: BENZTROPINE MESYLATE 1 MG TAB PO SCH ×2 (09:07→20:19)
[2017-04-23] MEDS: metFORMIN HCL 500 MG TAB PO SCH ×2 (09:08→18:00)
--- NOTE | 2017-04-23 15:32 | HHI.PYPN ---
Subjective Remarks Patient was seen and case discussed with nursing. Patient is pleasant and cooperative with exam. Appears slightly elevated and hyperverbal compared to yesterday. Patient spends the interview convincing me how well she is doing. Behaving well per nursing. Compliant with medications Objective Alert: Yes [place]: Person, Place Mood: Calm Affect: Appropriate Memory Intact: Comment (Not assessed today) Hallucinations: Other (none) Delusions: No Delusion Type: Other (no delusions) Suicidal: Ideation (No SI) Homicidal: Ideation (No HI) Insight/Judgment Improving Vitals/IOs Vital Signs Date Time Temp Pulse Resp B/P Pulse Ox O2 Delivery O2 Flow Rate FiO2 04/23/17 06:21 98.7 87 18 139/87 100 Assessment & Plan Problem List: (1) Schizophrenia ICD Code: F20.9 Assessment & Plan Continue current treatment plan Justification for Cont. Inpt. Patient will decompensate in a less restrictive setting Request HC Surrog/Guard Advoc?: No Problem Qualifiers (1) Schizophrenia: Qualified Code: F20.0 - Paranoid schizophrenia Gordo Rausch DO Apr 23, 2017 15:32
[2017-04-23 18:14] VITALS: BP 136/93; PULSE 94; RESP 18; TEMP 98.8; O2SAT 100
[2017-04-24] MEDS: LEVOTHYROXINE SODIUM 100 MCG TAB PO SCH (06:00)
[2017-04-24 06:12] VITALS: BP 138/80; PULSE 85; RESP 18; TEMP 98.7; O2SAT 97
[2017-04-24] MEDS: LISINOPRIL 20 MG TAB PO SCH (08:43)
[2017-04-24] MEDS: DOCUSATE SODIUM 100 MG CAP PO SCH ×2 (08:43→21:09)
[2017-04-24] MEDS: ASPIRIN EC 81 MG TABEC PO SCH (08:43)
[2017-04-24] MEDS: PANTOPRAZOLE SOD 20 MG DELAYED RELEASE TAB PO SCH (08:43)
[2017-04-24] MEDS: BENZTROPINE MESYLATE 1 MG TAB PO SCH ×2 (08:43→21:09)
[2017-04-24] MEDS: metFORMIN HCL 500 MG TAB PO SCH ×2 (08:43→17:24)
--- NOTE | 2017-04-24 15:15 | HHI.PYPN ---
Subjective Remarks Patient seen and examined. Chart reviewed. Case discussed with nursing staff. No behavioral issues noted. On my examination today, the patient is in good spirits. She denies side effects from medications. No physical complaints. No SI or HI. No psychotic symptoms. Counselor informs me that the patient has been accepted at [facility] with a discharge date of Monday. I discuss this with the patient, and she is agreeable to placement there. Review of Systems Except as stated in HPI: all other systems reviewed are Neg Objective Alert: Yes [place]: Person, Place Mood: Calm Affect: Euthymic Memory Intact: Comment (seems fair on clinical exam) Hallucinations: Other (no AVH) Delusions: No Delusion Type: Other (no delusional material) Suicidal: Ideation (no suicidal ideation) Homicidal: Ideation (no homicidal ideation) Insight/Judgment Poor Remarks Thought process linear. No motoric abnormalities noted. Labs Labs reviewed. Vitals/IOs Vital Signs Date Time Temp Pulse Resp B/P Pulse Ox O2 Delivery O2 Flow Rate FiO2 04/24/17 06:12 98.7 85 18 138/80 97 Assessment & Plan Problem List: (1) Schizophrenia ICD Code: F20.9 Assessment & Plan Continue current psychotropics as ordered. Continue to monitor on the inpatient unit. Continue other medications and care as ordered. Justification for Cont. Inpt. High risk for decompensation in a less restrictive environment. Discharge Planning Anticipate discharge Monday to [facility]. Request HC Surrog/Guard Advoc?: No Problem Qualifiers (1) Schizophrenia: Qualified Code: F20.0 - Paranoid schizophrenia Ivan Montgomery MD Apr 24, 2017 15:15
[2017-04-24 18:10] VITALS: BP 138/97; PULSE 91; RESP 16; TEMP 98.3; O2SAT 100
[2017-04-25] MEDS: LORazepam 2 MG TAB PO PRN (01:41)
[2017-04-25] MEDS: LEVOTHYROXINE SODIUM 100 MCG TAB PO SCH (06:08)
[2017-04-25 06:11] VITALS: BP 145/90; PULSE 68; RESP 18; TEMP 97.5; O2SAT 98
[2017-04-25] MEDS: ASPIRIN EC 81 MG TABEC PO SCH (08:48)
[2017-04-25] MEDS: PANTOPRAZOLE SOD 20 MG DELAYED RELEASE TAB PO SCH (08:48)
[2017-04-25] MEDS: LISINOPRIL 20 MG TAB PO SCH (08:48)
[2017-04-25] MEDS: BENZTROPINE MESYLATE 1 MG TAB PO SCH ×2 (08:48→21:22)
[2017-04-25] MEDS: DOCUSATE SODIUM 100 MG CAP PO SCH ×2 (08:48→21:00)
[2017-04-25] MEDS: metFORMIN HCL 500 MG TAB PO SCH ×2 (08:48→18:00)
--- NOTE | 2017-04-25 12:05 | PD.TTN ---
Present for Treatment Team Treatment Team Staff: Provider, Nurse, Psych Therapist, Occupational Therapist Patient Problems 1. Discharge planning 2. Medication compliance 3. Knowledge deficit 4. Lack of coping skills Progress Toward Goals Provider Input: Patient continues to be stablizing on medication, and processing with a prospective discharge plan for 04/26/17 Nurse Input: Patient is not sleeping well at night; however spends times throughout the day sleepig. Patient is eating meals and taking her medication, with no behavior concerns. Psych Therapist Input: Patient has been linked with [facility] with an anticipated discharge there. Occupational Therapist Input: Patient attends and participates with groups, and is socialable on the unit. Estephania Escamilla [facility] Apr 25, 2017 12:05
--- NOTE | 2017-04-25 12:59 | HHI.PYPN ---
Subjective Remarks Patient seen and examined. Chart reviewed. Case discussed with nursing staff, counselor and occupational therapist in treatment team. Plan is for discharge tomorrow to [facility]. Nursing staff reports that the patient is "doing great" on the unit; no behavioral problem. On my examination today, patient is in good spirits. She is looking forward to discharge tomorrow. No side effects from medications. No psychotic or mood disorder symptoms. No physical complaints. Review of Systems Except as stated in HPI: all other systems reviewed are Neg Objective Alert: Yes [place]: Person, Place (at least) Mood: Happy Affect: Euthymic Memory Intact: Comment (fair) Hallucinations: Other (none) Delusions: No Delusion Type: Other (no delusions) Suicidal: Ideation (no SI) Homicidal: Ideation (no HI) Insight/Judgment Poor Remarks No motor abnormalities noted. Thought process linear. Labs Labs reviewed. Vitals/IOs Vital Signs Date Time Temp Pulse Resp B/P Pulse Ox O2 Delivery O2 Flow Rate FiO2 04/25/17 06:11 97.5 68 18 145/90 98 Intake and Output 04/24/17 04/24/17 04/25/17 08:00 16:00 00:00 Intake Total 480 ml Balance 480 ml Assessment & Plan Problem List: (1) Schizophrenia ICD Code: F20.9 Assessment & Plan Continue current psychotropics as ordered. Continue to monitor on the inpatient unit. Continue other medications and care as ordered. Justification for Cont. Inpt. Final discharge planning Discharge Planning Anticipate discharge tomorrow to [facility]. Request HC Surrog/Guard Advoc?: No Problem Qualifiers (1) Schizophrenia: Qualified Code: F20.0 - Paranoid schizophrenia Ivan Montgomery MD Apr 25, 2017 12:59
[2017-04-26] MEDS: LEVOTHYROXINE SODIUM 100 MCG TAB PO SCH (05:54)
[2017-04-26 06:24] VITALS: BP 149/97; PULSE 99; RESP 16; TEMP 97.5; O2SAT 99
[2017-04-26] MEDS ORDERED: METF500 PO (08:10)
[2017-04-26] MEDS ORDERED: PANT20 PO (08:10)
[2017-04-26] MEDS ORDERED: Benztropine PO (08:10)
[2017-04-26] MEDS ORDERED: PALI156P IM (08:10)
[2017-04-26] MEDS ORDERED: LISI-515 PO (08:10)
[2017-04-26] MEDS ORDERED: DOCU1CAP39 PO (08:10)
[2017-04-26] MEDS ORDERED: LEVO.1 PO (08:10)
[2017-04-26] MEDS ORDERED: ASPI-99 PO (08:10)
--- NOTE | 2017-04-26 08:10 | HHI.DS ---
Psychiatry Discharge Summary Inpatient Psychiatric care?: Yes Advance Directive: No Mental Health AdvanceDirective: No Health Care Proxy: No Admission Admission Date April 04, 2017 at 15:52 Admission Diagnosis: (1) Schizophrenia ICD Code: F20.9 Brief History Ms. Cuenca is a 41-year-old female with a history of schizophrenia who presents under an ex parte order initiated by her caregiver, Ms. Pelaez, and a [employer] employee, Ms. Smith. I have reviewed the ex parte order in detail and it alleges that the patient has been refusing medications and threatening other residents at her facility. Efforts were allegedly made to have the patient [place] acted by law enforcement without success. Ex parte order also alleges that the patient was found with a knife in her bedroom dresser drawer on 03/22, and all sharps were subsequently secured. Patient was evaluated by the psychiatric nurse practitioner in the emergency department and was apparently agitated there, requiring ETO medications. Reviewing the electronic medical record, I note the patient was admitted here most recently in February of last year under Dr. Villanueva, and it appears that she was transferred to the [facility] for further stabilization at that time. Patient seen and examined with counselor and nurse. Chart reviewed. Case discussed with nursing staff reports that the patient has been intermittently agitated since arriving to the floor. On my examination today, the patient presents as delusional. She believes that her sister, Niya, is "poisoning me with chemicals and drugs in my system." She says that she knows that this is happening because she has at times felt "fainty and bloated in the head." She denies physical complaints at this time, except that she believes that her blood is "dirty and dark and that's where the pressure is coming from." She wants us to "draw off [her blood] to make me pure again." Synagogue preoccupation is noted. Insight into mental illness is poor, and the patient rejects any mental illness diagnosis. Thought process fairly linear within delusional system. Affect is euthymic if somewhat childlike. No issues with mood noted. She denies any suicidal or homicidal ideation. She denies any audiovisual hallucinations. Remainder of the psychiatric ROS is negative. Tobacco Use In Past 30 Days: 4 or Less Cigarettes/Day Alcohol Use: Never Hospital Course Patient was admitted to a locked, inpatient psychiatric unit. A general medical consultation was obtained. Appropriate precautions were in place throughout patient's hospital stay. Patient was seen and examined on the unit by psychiatry and also visited by counselor. Psychotropic medications were adjusted. Patient tolerated medications well without side effects. Patient was started on long-acting injectable Invega Sustenna. Patient had improvement in her presenting psychiatric symptomatology. There was no evidence of any suicidality or homicidality on the inpatient unit. Patient remained in good behavioral control and became medication compliant with her general medical medications with the benefit of psychotropic medication treatment. Counselor has arranged for placement at [facility]. On the day of discharge: Patient seen and examined. Chart reviewed. Case discussed with nursing staff who reports the patient has been no behavioral problem. On my examination today, the patient is in good spirits. She is looking forward to transitioning to [facility] today. She denies any suicidal or homicidal ideation, intent or plan. Denies any audiovisual hallucinations. No delusional beliefs. No issues with mood. Denies side effects from medications. No physical complaints. Weighing the acute, chronic, and protective factors and based on the available evidence, I justice court judge to a reasonable degree of medical certainty that the patient is at low imminent risk of harm to self or others from a mental illness as defined under the [place] act and her level of function is adequate for planned level of outpatient care. Patient has maximized benefit from this inpatient psychiatric hospital stay and will be discharged today with psychiatric follow-up as arranged by counselor. Patient is also follow-up with primary care. Patient to return to the psychiatric emergency room for any concerning psychiatric symptoms. Results Blood Pressure 149 / 97 Vital Signs Date Time Temp Pulse Resp B/P Pulse Ox O2 Delivery O2 Flow Rate FiO2 04/26/17 06:24 97.5 99 16 149/97 99 Item Value Date Time White Blood Count 8.9 TH/MM3 04/05/17 0725 Hemoglobin 12.8 GM/DL 04/05/17 0725 Platelet Count 189 TH/MM3 04/05/17 0725 Sodium Level 144 MEQ/L 04/05/17 0725 Potassium Level 3.9 MEQ/L 04/05/17 0725 Chloride Level 110 MEQ/L H 04/05/17 0725 Carbon Dioxide Level 26.0 MEQ/L 04/05/17 0725 Blood Urea Nitrogen 16 MG/DL 04/05/17 0725 Creatinine 0.78 MG/DL 04/05/17 0725 Random Glucose 96 MG/DL 04/05/17 0725 Hemoglobin A1c 5.8 % 04/05/17 0725 Aspartate Amino Transf (AST/SGOT) 19 U/L 04/05/17 0725 Alanine Aminotransferase (ALT/SGPT) 24 U/L 04/05/17 0725 Alkaline Phosphatase 71 U/L 04/05/17 0725 Free Thyroxine 1.16 NG/DL 04/05/17 0725 Thyroid Stimulating Hormone 3rd Gen 2.460 uIU/ML 04/05/17 0725 Beta HCG, Qualitative LESS THAN 1 MIU/ML 04/05/17 0725 Summary of Procedures None done Imaging None done Pending results at discharge: No Medications # of Antipsychotic meds at D/C: 1 Approp Antipsych med options 1 - Minimum of three failed multiple trials of monotherapy. 2 - Documented plan to taper to monotherapy due to previous use of multiple meds OR cross-taper in progress at D/C. 3 - Documentation of augmentation of Clozapine. 4 - Justification other than those listed in allowable values 1-3, document here : Discharge Discharge Date: Apr 26, 2017 Discharge Diagnosis: (1) Schizophrenia Diagnosis: Principal (stable) ICD Code: F20.9 GAF on discharge is 55. Mental Status Exam at Disch Patient is in hospital attire. She is well groomed. She is awake and alert and oriented to person and hospital as well as approximate date. No evidence of delirium. No abnormal motor movements noted. Speech is within normal limits for rate, tone and volume. Mood is good and affect is full and reactive. Thought process linear. No loosening of associations. No evident delusions. Denies audiovisual hallucinations. Denies suicidal or homicidal ideation. Insight and judgment are poor. Pt Condition on Discharge: Stable Discharge Disposition: [facility] Discharge Instructions Diet Instructions: Diabetic Diet Activities you can perform: Weight Bearing as [place] Scheduled Appointment: as per counselor's notes New Medications: Paliperidone Palmitate Inj (Invega Sustenna Inj) 156 Mg/Ml Inj 156 MG IM Q28D This dose of Invega Sustenna is due 05/15/2017. Mental Health #[address] Ref [address] (Adult Aspirin EC Low Strength) 81 Mg Tabec 81 MG PO DAILY Health Days 15 Ref 1 TAB Docusate Sodium (Dok) 100 Mg Cap 100 MG PO BID Constipation Days 15 Ref 1 CAP Levothyroxine (Synthroid) 100 Mcg Tab 100 MCG PO DAILY@0600 Thyroid Days 15 Ref 1 TAB Lisinopril (Lisinopril) 20 Mg Tab 40 MG PO DAILY Blood Pressure Management Days 15 Ref 1 TAB Metformin (Glucophage) 500 Mg Tab 500 MG PO BIDPC Blood Sugar Management Days 15 Ref 1 TAB Pantoprazole (Protonix) 20 Mg Tab 20 MG PO DAILY Reflux Days 15 Ref 1 TAB ([Benztropine]) 1 MG TAB 1 MG PO Q12HR Side effect management Days 15 Ref 1 TAB Discharge Time <= 30 minutes Discharge/Advance Care Plan Health Problems: (1) Schizophrenia Goals to promote your health * To prevent worsening of your condition and complications * To maintain your health at the optimal level Directions to meet your goals Take your medications as prescribed Follow your dietary instruction Follow activity as directed Keep your appointments as scheduled Take your immunizations and boosters as scheduled If your symptoms worsen call your PCP, if no PCP go to Urgent Care Center or Emergency Room For 05/06 questions related to your inpatient stay or results of tests pending at discharge, please contact Dr. Ivan Montgomery at Smoking is Dangerous to Your Health. Avoid second hand smoking Problem Qualifiers (1) Schizophrenia: Qualified Code: F20.0 - Paranoid schizophrenia Ivan Montgomery MD Apr 26, 2017 08:10
[2017-04-26] MEDS: PANTOPRAZOLE SOD 20 MG DELAYED RELEASE TAB PO SCH (09:16)
[2017-04-26] MEDS: metFORMIN HCL 500 MG TAB PO SCH (09:16)
[2017-04-26] MEDS: DOCUSATE SODIUM 100 MG CAP PO SCH (09:16)
[2017-04-26] MEDS: BENZTROPINE MESYLATE 1 MG TAB PO SCH (09:16)
[2017-04-26] MEDS: LISINOPRIL 20 MG TAB PO SCH (09:16)
[2017-04-26] MEDS: ASPIRIN EC 81 MG TABEC PO SCH (09:16)
== END 2017-04-26 16:00 | DRG 885 ==
LOC: NEPJ 14:50 → NEDA 04-04 15:52 → H270 04-04 16:34 → H260 04-09 12:20
PROVIDERS: ADMIT Psychiatry & Neurology Psychiatry; ATTEND Psychiatry & Neurology Psychiatry
DX: F20.0 Paranoid schizophrenia (principal); Z78.1 Physical restraint status; I10 Essential (primary) hypertension; R25.1 Tremor, unspecified; E11.9 Type 2 diabetes mellitus without complications; E03.9 Hypothyroidism, unspecified; E78.5 Hyperlipidemia, unspecified; K59.00 Constipation, unspecified; K21.9 Gastro-esophageal reflux disease without esophagitis; D72.829 Elevated white blood cell count, unspecified; F31.9 Bipolar disorder, unspecified; F17.210 Nicotine dependence, cigarettes, uncomplicated; Z59.9 Problem related to housing and economic circumstances, unspecified; Z79.84 Long term (current) use of oral hypoglycemic drugs; Z86.14 Personal history of Methicillin resistant Staphylococcus aureus infection; Z81.8 Family history of other mental and behavioral disorders; Z91.14 Patient's other noncompliance with medication regimen
CPT/HCPCS: 80048; 80061; 80076; 80307; 82948; 83036; 84439; 84443; 84703; 85025; 96372; J1630; J1815; J2060; J2426

== ENCOUNTER 2017-08-20 23:45 | Emergency (ER) | payer MEDICARE, OTHER ==
[~2017-08-20] VITALS: Ht 172.7 cm; Wt 99.5 kg
[~2017-08-20 23:45] MED LIST changes: +ASPI-99 PO; -BENZ1TAB PO; +Benztropine PO; -CLON1TAB PO; -DEPA500T3 PO; +DOCU1CAP39 PO; -GABA600T PO; -IMIP25TA PO; +LEVO.1 PO; -LEVO100T4 PO; -LEVO88TA2 PO; -LISI-363 PO; +LISI-515 PO; -NIFE30TA2 PO; -OMEP20TA39 PO; +PALI156P IM; +PANT20 PO; -SERO100T PO; -SIMV20 PO; -TRAZ100 PO; -ZANA4CAP PO; -ZOLP10TA3 PO
[2017-08-20 23:48] VITALS: BP 236/131; PULSE 82; RESP 16; TEMP 98.7; O2SAT 96
[2017-08-21 00:21] VITALS: BP 216/138
[2017-08-21] MEDS ORDERED: LABETALOL HCL 100 MG/20 ML VIAL IV PUSH ONE ×2 (00:30→01:30)
[2017-08-21 00:33] LABS: AUTOMATED NEUTROPHIL # 11.6 TH/MM3 (1.8-7.7); BASOPHIL # 0.1 TH/MM3 (0-0.2); BASOPHIL % 0.5 % (0.0-2.0); EOSINOPHIL # 0.1 TH/MM3 (0-0.4); EOSINOPHIL % 0.9 % (0.0-4.0); HEMATOCRIT 40.3 % (35.0-46.0); HEMO FLAGS DIFF FINAL; LYMPH % 13.9 % (9.0-44.0); LYMPHOCYTE # 2.1 TH/MM3 (1.0-4.8); MEAN CELL VOLUME 91.5 FL (80.0-100.0); MEAN CORPUSCULAR HEMOGLOBIN 30.5 PG (27.0-34.0); MEAN CORPUSCULAR HGB CONC 33.3 % (32.0-36.0); MONO % 7.3 % (0.0-8.0); NEUT % 77.4 % (16.0-70.0); PLATELET COUNT 181 TH/MM3 (150-450); RED CELL DISTRIBUTION WIDTH 14.1 % (11.6-17.2)
--- NOTE | 2017-08-21 00:40 | PD ---
HPI Chief Complaint: Medical Clearance Time Seen by Provider: 00:12 Travel History International Travel<30 days: No Contact w/Intl Traveler<30days: No Traveled to known affect area: No History of Present Illness HPI The patient is a 42-year-old [place] female who presents to the emergency department for elevated blood pressure and possible . The patient has a history of schizophrenia and hypertension, is currently not taking any of her antihypertensive medications. The patient states her last menstrual cycle was in 2000, however, think she may be . The patient feels like she might be could she is occasionally hungry and has nausea. She denies any headache, chest pain, shortness of breath, or abdominal pain. She does note a history of hypertension but does not take her medications. Symptoms are moderate, possibly exacerbated by noncompliance, and there are no current alleviating factors. The patient denies any vaginal discharge or bleeding. PFSH Past Medical History Blood Disorders: No Bipolar Disorder: Yes Anxiety: Yes Depression: Yes Cancer: No Cardiovascular Problems: No Diminished Hearing: No Endocrine: Yes Gastrointestinal Disorders: No Genitourinary: No Headaches: No Hypertension: Yes Immune Disorder: No Implanted Vascular Access Dvce: No Musculoskeletal: No Neurologic: No Psychiatric: Yes (Hx of treatment for Schizophrenia/Schizoaffective Disorder) Reproductive: No Respiratory: No Immunizations Current: Yes PNEUMOCCOCAL Vaccine (Year): 2 ?: Unknown Menopausal: Yes : 1 Para: 1 Past Surgical History Abdominal Surgery: Yes (CSECTION) AICD: No Arteriovenous Shunt: No Section: Yes (1997) Gynecologic Surgery: Yes Insulin Pump: No Joint Replacement: No Pacemaker: No Other Surgery: Yes (C SECTION ONLY) Social History Alcohol Use: No Tobacco Use: Yes (11/15 PPD) Substance Use: No (DENIES) Allergies-Medications (Allergen,Severity, Reaction): Coded Allergies: *MDRO Multi-Drug Resistant Organism (Verified Adverse Reaction, Unknown, MRSA, 08/21/17) MRSA (wounds) - 12/01/07, 02/01/08 Reported Meds & Prescriptions Reported Meds & Active Scripts Active Protonix (Pantoprazole Sodium) 20 Mg Tab 20 Mg PO DAILY 15 Days Glucophage (Metformin HCl) 500 Mg Tab 500 Mg PO BIDPC 15 Days Lisinopril 20 Mg Tab 40 Mg PO DAILY 15 Days Synthroid (Levothyroxine Sodium) 100 Mcg Tab 100 Mcg PO DAILY@0600 15 Days [Benztropine] 1 MG Tab 1 Mg PO Q12HR 15 Days Adult Aspirin EC Low Strength (Aspirin) 81 Mg Tabec 81 Mg PO DAILY 15 Days Review of Systems Except as stated in HPI: all other systems reviewed are Neg General / Constitutional: No: Fever HENT: No: Headaches, Lightheadedness Cardiovascular: No: Chest Pain or Discomfort Respiratory: No: Shortness of Breath Gastrointestinal: Positive: Nausea, No: Vomiting, Abdominal Pain Genitourinary: No: Pelvic Pain, Discharge, Vaginal Bleeding Endocrine: Positive: Other (polyphagia) Physical Exam Narrative GENERAL: Awake, alert, nontoxic-appearing 42-year-old female who appears her stated age and is in no acute respiratory distress. SKIN: Focused skin assessment warm/dry. HEAD: Atraumatic. Normocephalic. EYES: No injection or drainage. ENT: No nasal bleeding or discharge. Mucous membranes pink and moist. NECK: Trachea midline. No JVD. CARDIOVASCULAR: Regular rate and rhythm. No murmur appreciated. RESPIRATORY: No accessory muscle use. Clear to auscultation. Breath sounds equal bilaterally. GASTROINTESTINAL: Abdomen soft, non-tender, nondistended. MUSCULOSKELETAL: No obvious deformities. No clubbing. No cyanosis. No edema. NEUROLOGICAL: Awake and alert. No obvious cranial nerve deficits. Motor grossly within normal limits. Normal speech. PSYCHIATRIC: Odd affect. Data Data Last Documented VS Vital Signs Date Time Temp Pulse Resp B/P (MAP) Pulse Ox O2 Delivery O2 Flow Rate FiO2 08/21/17 02:05 81 19 185/117 (139) 100 Room Air 08/20/17 23:48 98.7 Orders Orders Basic Metabolic Panel (Bmp) (08/21/17 00:22) Electrocardiogram (08/21/17 ) Creatine Kinase (Cpk) (08/21/17 00:22) Complete Blood Count With Diff (08/21/17 00:22) Labetalol Inj (Trandate Inj) (08/21/17 00:30) CKMB (08/21/17 00:25) CKMB% (08/21/17 00:25) Labetalol Inj (Trandate Inj) (08/21/17 01:30) Labs Laboratory Tests Test 08/21/17 00:25 White Blood Count 15.0 TH/MM3 Red Blood Count 4.40 MIL/MM3 Hemoglobin 13.4 GM/DL Hematocrit 40.3 % Mean Corpuscular Volume 91.5 FL Mean Corpuscular Hemoglobin 30.5 PG Mean Corpuscular Hemoglobin Concent 33.3 % Red Cell Distribution Width 14.1 % Platelet Count 181 TH/MM3 Mean Platelet Volume 9.8 FL Neutrophils (%) (Auto) 77.4 % Lymphocytes (%) (Auto) 13.9 % Monocytes (%) (Auto) 7.3 % Eosinophils (%) (Auto) 0.9 % Basophils (%) (Auto) 0.5 % Neutrophils # (Auto) 11.6 TH/MM3 Lymphocytes # (Auto) 2.1 TH/MM3 Monocytes # (Auto) 1.1 TH/MM3 Eosinophils # (Auto) 0.1 TH/MM3 Basophils # (Auto) 0.1 TH/MM3 CBC Comment DIFF FINAL Differential Comment Blood Urea Nitrogen 15 MG/DL Creatinine 0.96 MG/DL Random Glucose 122 MG/DL Calcium Level 9.8 MG/DL Sodium Level 140 MEQ/L Potassium Level 3.5 MEQ/L Chloride Level 105 MEQ/L Carbon Dioxide Level 27.9 MEQ/L Anion Gap 7 MEQ/L Estimat Glomerular Filtration Rate 77 ML/MIN Total Creatine Kinase 502 U/L Creatine Kinase MB 5.5 NG/ML Creatine Kinase MB % 1.1 % MDM Medical Decision Making Medical Screen Exam Complete: Yes Emergency Medical Condition: Yes Medical Record Reviewed: Yes Interpretation(s) EKG reveals normal sinus rhythm with a rate in 96. No ischemic changes or ectopy noted. Laboratory Tests Test 08/21/17 00:25 White Blood Count 15.0 TH/MM3 Red Blood Count 4.40 MIL/MM3 Hemoglobin 13.4 GM/DL Hematocrit 40.3 % Mean Corpuscular Volume 91.5 FL Mean Corpuscular Hemoglobin 30.5 PG Mean Corpuscular Hemoglobin Concent 33.3 % Red Cell Distribution Width 14.1 % Platelet Count 181 TH/MM3 Mean Platelet Volume 9.8 FL Neutrophils (%) (Auto) 77.4 % Lymphocytes (%) (Auto) 13.9 % Monocytes (%) (Auto) 7.3 % Eosinophils (%) (Auto) 0.9 % Basophils (%) (Auto) 0.5 % Neutrophils # (Auto) 11.6 TH/MM3 Lymphocytes # (Auto) 2.1 TH/MM3 Monocytes # (Auto) 1.1 TH/MM3 Eosinophils # (Auto) 0.1 TH/MM3 Basophils # (Auto) 0.1 TH/MM3 CBC Comment DIFF FINAL Differential Comment Blood Urea Nitrogen 15 MG/DL Creatinine 0.96 MG/DL Random Glucose 122 MG/DL Calcium Level 9.8 MG/DL Sodium Level 140 MEQ/L Potassium Level 3.5 MEQ/L Chloride Level 105 MEQ/L Carbon Dioxide Level 27.9 MEQ/L Anion Gap 7 MEQ/L Estimat Glomerular Filtration Rate 77 ML/MIN Total Creatine Kinase 502 U/L Creatine Kinase MB 5.5 NG/ML Creatine Kinase MB % 1.1 % Differential Diagnosis Differential diagnosis includes schizophrenia, delusional disorder, hypertension , hypertensive urgency, hypertensive emergency, noncompliance. Narrative Course IV was established, labs are drawn and sent, and the patient was placed on cardiac telemetry monitoring and continuous pulse oximetry monitoring. Bedside UA test was negative. The patient was administered labetalol 20 mg intravenously. The patient's creatinine is unremarkable. The patient's blood pressure continued be elevated 184/119. Therefore, the patient was administered a second dose of labetalol 20 mg intravenously. The patient had her blood pressure come down to 187/110 after the second dose of labetalol. The patient was administered Norvasc and will be discharged home on Norvasc. She is asymptomatic at this time, is advised to follow-up with her primary physician in regards to continuing hypertension. Diagnosis Primary Impression: Hypertensive urgency Patient Instructions: General Instructions Additional Instructions: Medications as directed. Follow-up with your primary physician. Return if symptoms worsen or progress. Med/Other Pt SpecificInfo: Prescription(s) given Scripts Amlodipine (Norvasc) 10 Mg Tab 10 MG PO DAILY for Blood Pressure Management, #30 TAB 2 Refills Prov: Barry Osuna MD 08/21/17 Disposition: DISCHARGE HOME Condition: Stable Barry Osuna MD Aug 21, 2017 00:40
[2017-08-21 00:45] VITALS: BP 204/117; PULSE 92; RESP 21; O2SAT 100
[2017-08-21 01:11] LABS: BICARBONATE 27.9 MEQ/L (21.0-32.0); POTASSIUM 3.5 MEQ/L (3.5-5.1)
[2017-08-21 01:17] VITALS: BP 198/119; PULSE 84; RESP 19; O2SAT 100
[2017-08-21 01:27] LABS: CKMB 5.5 NG/ML (0.5-3.6)
[2017-08-21 01:43] VITALS: BP 187/110; PULSE 83; RESP 17; O2SAT 100
[2017-08-21 02:05] VITALS: BP 185/117; PULSE 81; RESP 19; O2SAT 100
[2017-08-21] MEDS ORDERED: AMLO10 PO (02:18)
[2017-08-21 03:11] VITALS: BP 185/105; PULSE 78; RESP 18; O2SAT 100
--- NOTE | 2017-08-21 12:34 | EKG ---
Date Performed: 08/21/2017 Time Performed: 00:30:07 PTAGE: 42 years EKG: Sinus rhythm NORMAL ECG Compared to prior tracing no significant change PREVIOUS TRACING : 01/29/2016 15.07 DOCTOR: Ivan Delgado Interpretating Date/Time 08/21/2017 12:29:20
== END 2017-08-21 03:24 | disposition home or self-care (01) ==
LOC: NEPE 23:45
DX: I16.0 Hypertensive urgency (principal); I10 Essential (primary) hypertension; F17.210 Nicotine dependence, cigarettes, uncomplicated
CPT/HCPCS: 80048; 82550; 82552; 85025; 93005; 96374; 96376

== ENCOUNTER 2017-08-22 13:14 | Emergency (ER) | payer MEDICARE, OTHER ==
[~2017-08-22] VITALS: Ht 172.7 cm; Wt 100.0 kg
[~2017-08-22 13:14] MED LIST changes: +AMLO10 PO; -DOCU1CAP39 PO; -PALI156P IM
[2017-08-22 13:19] VITALS: BP 180/110; PULSE 107; RESP 22; TEMP 99.2; O2SAT 96
--- NOTE | 2017-08-22 13:37 | PD ---
Physical Exam Date Seen by Provider: Aug 22, 2017 Time Seen by Provider: 13:35 Narrative 42 yo female here for possible "food poisoning". Going on for 2.5 hours. Some N/ V. No diarrhea. In no distress. Initially she had told photonic laboratory technician that she might have drank too much milk and it might have affected her . She was seen here a few days ago and had test which was negative. She does have a history of schizophrenia. Vitals are stable in triage. Awaiting bed placement. Data Data Last Documented VS Vital Signs Date Time Temp Pulse Resp B/P (MAP) Pulse Ox O2 Delivery O2 Flow Rate FiO2 08/22/17 13:19 99.2 107 22 180/110 (133) 96 Room Air Orders Orders Urinalysis - C+S If Indicated (08/22/17 13:34) Ed Urine Pregnancytest Poc (08/22/17 13:34) [facility] Medical Record Reviewed: Yes Supervised Visit with MILO: No Galdino Lance Aug 22, 2017 13:37
--- NOTE | 2017-08-22 15:34 | PD ---
HPI Chief Complaint: GI Complaint Time Seen by Provider: 14:55 Travel History International Travel<30 days: No Contact w/Intl Traveler<30days: No Traveled to known affect area: No History of Present Illness HPI 42-year-old female here for evaluation of diarrhea 3 hours. Patient reports she drank a glass of milk and then promptly had 3 episodes of watery nonbloody diarrhea. She denies abdominal pain. She denies fever, nausea or vomiting, dysuria, vaginal discharge or bleeding. She reports that she may be . Symptom severity is mild. No alleviating factors. PFSH Past Medical History Blood Disorders: No Bipolar Disorder: Yes Anxiety: Yes Depression: Yes Cancer: No Cardiovascular Problems: No Diminished Hearing: No Endocrine: Yes Gastrointestinal Disorders: No Genitourinary: No Headaches: No Hypertension: Yes Immune Disorder: No Implanted Vascular Access Dvce: No Musculoskeletal: No Neurologic: No Psychiatric: Yes (Hx of treatment for Schizophrenia/Schizoaffective Disorder) Reproductive: No Respiratory: No Immunizations Current: Yes PNEUMOCCOCAL Vaccine (Year): 2 ?: Not Menopausal: Yes : 1 Para: 1 Past Surgical History Abdominal Surgery: Yes (CSECTION) AICD: No Arteriovenous Shunt: No Section: Yes (1997) Gynecologic Surgery: Yes Insulin Pump: No Joint Replacement: No Pacemaker: No Other Surgery: Yes (C SECTION ONLY) Social History Alcohol Use: No (rarely) Tobacco Use: Yes Substance Use: No (DENIES) Allergies-Medications (Allergen,Severity, Reaction): Coded Allergies: *MDRO Multi-Drug Resistant Organism (Verified Adverse Reaction, Unknown, MRSA, 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) MRSA (wounds) - 12/01/07, 02/01/08 Reported Meds & Prescriptions Reported Meds & Active Scripts Active Norvasc (Amlodipine Besylate) 10 Mg Tab 10 Mg PO DAILY Protonix (Pantoprazole Sodium) 20 Mg Tab 20 Mg PO DAILY 15 Days Glucophage (Metformin HCl) 500 Mg Tab 500 Mg PO BIDPC 15 Days Lisinopril 20 Mg Tab 40 Mg PO DAILY 15 Days Synthroid (Levothyroxine Sodium) 100 Mcg Tab 100 Mcg PO DAILY@0600 15 Days [Benztropine] 1 MG Tab 1 Mg PO Q12HR 15 Days Adult Aspirin EC Low Strength (Aspirin) 81 Mg Tabec 81 Mg PO DAILY 15 Days Review of Systems Except as stated in HPI: all other systems reviewed are Neg General / Constitutional: No: Fever Eyes: No: Visual changes HENT: No: Headaches Cardiovascular: No: Chest Pain or Discomfort Physical Exam Narrative GENERAL: SKIN: Warm and dry. HEAD: Normocephalic. EYES: No scleral icterus. No injection or drainage. NECK: Supple, trachea midline. No JVD or lymphadenopathy. CARDIOVASCULAR: Regular rate and rhythm without murmurs, gallops, or rubs. RESPIRATORY: Breath sounds equal bilaterally. No accessory muscle use. GASTROINTESTINAL: Abdomen soft, non-tender, nondistended. MUSCULOSKELETAL: No cyanosis, or edema. BACK: Nontender without obvious deformity. No CVA tenderness. Data Data Last Documented VS Vital Signs Date Time Temp Pulse Resp B/P (MAP) Pulse Ox O2 Delivery O2 Flow Rate FiO2 08/22/17 13:19 99.2 107 22 180/110 (133) 96 Room Air Orders Orders Urinalysis - C+S If Indicated (08/22/17 13:34) Ed Urine Pregnancytest Poc (08/22/17 13:34) Labs Laboratory Tests Test 08/22/17 15:20 Urine Color YELLOW Urine Turbidity CLEAR Urine pH 6.0 Urine Specific [place] 1.016 Urine Protein TRACE mg/dL Urine Glucose (UA) NEG mg/dL Urine Ketones NEG mg/dL Urine Occult Blood MOD Urine Nitrite NEG Urine Bilirubin NEG Urine Urobilinogen LESS THAN 2.0 MG/DL Urine Leukocyte Esterase NEG Urine RBC 21 /hpf Urine WBC 1 /hpf Urine Squamous Epithelial Cells <1 /hpf Microscopic Urinalysis Comment CULT NOT INDICATED MDM Medical Decision Making Medical Screen Exam Complete: Yes Emergency Medical Condition: Yes Differential Diagnosis foodborne illness, enteritis, IBS Narrative Course 42-year-old female here for evaluation of 3 episodes of diarrhea this afternoon after drinking a glass of milk. Patient is also reporting that she is possibly . She denies abdominal pain nausea or vomiting. Her physical exam she is well-appearing. Her abdomen is soft and nontender. She has had no episodes of diarrhea during her visit here in the ED. Her test was negative. Her UA is negative for infection. Diagnostic studies discussed with patient. She is reporting symptom improvement and requesting discharge. Patient wasn't instructed to follow a bland BRAT diet. Diagnosis Primary Impression: Diarrhea Qualified Codes: R19.7 - Diarrhea, unspecified Referrals: [facility] Additional Instructions: Stay well hydrated by drinking plenty of fluids. Eating a bland diet. Avoid spicy and fatty foods. Follow-up with her primary care Disposition: 01 DISCHARGE HOME Condition: Stable Karmen Petty Aug 22, 2017 15:34
[2017-08-22 16:05] LABS: BLOOD, URINE MOD (NEG); COMMENT (UR) CULT NOT INDICATED; CULTURE IF INDICATED CULT NOT INDICATED; GLUCOSE,URINE NEG (NEG); KETONE, URINE NEG (NEG); NITRITE,URINE NEG (NEG); SQUAMOUS EPITHELIAL CELL URINE <1 /hpf (0-5); URINE COLOR YELLOW (YELLW/STRAW)
[2017-08-22 16:35] VITALS: PULSE 110; RESP 20; TEMP 100.2; O2SAT 100
== END 2017-08-22 16:49 | disposition home or self-care (01) ==
LOC: NEPD 13:14
DX: R19.7 Diarrhea, unspecified (principal); I10 Essential (primary) hypertension; Z72.0 Tobacco use; Z86.59 Personal history of other mental and behavioral disorders; Z86.39 Personal history of other endocrine, nutritional and metabolic disease
CPT/HCPCS: 81001; 84703; 99283